=== PATIENT | female | born 1930 | race Caucasian/White ===

== ENCOUNTER 2016-03-17 13:26 | Inpatient (IN) | payer MEDICARE, BC ==
[~2016-03-17] VITALS: Ht 147.3 cm; Wt 52.6 kg
[~2016-03-17 13:26] MED LIST: ATOR20TA PO; LAMO150T2 PO; QUET100T PO
[2016-03-17] MEDS ORDERED: ACETAMINOPHEN ES 500 MG TABLET PO ONE (14:00)
[2016-03-17] MEDS ORDERED: IV NS 0.9% 500 ML BAG IV ONE (14:00)
[2016-03-17] MEDS ORDERED: IV NS 0.9% 1,000 ML BAG IV ONE (14:00)
[2016-03-17] MEDS ORDERED: IV NS 0.9% 1,000 ML ONE (14:02)
[2016-03-17] MEDS ORDERED: IV NS 0.9% 500 ML IV ONE (14:02)
[2016-03-17] MEDS ORDERED: IV SET PRIMARY 1 EA INFUS.SET MC ONE ×2 (14:02→15:04)
[2016-03-17] MEDS ORDERED: ACETAMINOPHEN ES 500 MG TABLET ONE (14:02)
[2016-03-17] MEDS ORDERED: METO25TA6 PO (14:14)
[2016-03-17] MEDS ORDERED: VALS80TA2 PO (14:14)
[2016-03-17] MEDS ORDERED: CHOL100044 PO (14:14)
[2016-03-17] MEDS ORDERED: RISP0.253 PO (14:14)
[2016-03-17] MEDS ORDERED: ATOR10TA PO (14:14)
[2016-03-17 14:28] LABS: BASOPHILS # (AUTO) 0.2 /CMM (0.0-0.2); BASOPHILS % (AUTO) 0.6 % (0.0-2.0); DIFF TOTAL % 100 %; EOSINOPHILS # (AUTO) 0.1 /CMM (0.0-0.7); EOSINOPHILS % (AUTO) 0.3 % (0.0-6.0); HEMATOCRIT 33 % (33-45); LYMPHOCYTES # (AUTO) 0.6 /CMM (0.8-4.8); LYMPHOCYTES % (AUTO) 1.9 % (20.0-44.0); MEAN CORPUSCULAR HEMOGLOBIN 29 PG (26.0-33.0); MEAN CORPUSCULAR HGB CONC 33 g/dl (31.0-36.0); MEAN CORPUSCULAR VOLUME 88 fL (82-100); MONOCYTES # (AUTO) 1.8 /CMM (0.1-1.30); MONOCYTES % (AUTO) 5.7 % (2.0-12.0); NEUTROPHILS # (AUTO) 29.6 /CMM (1.8-8.9); NEUTROPHILS % (AUTO) 91.5 % (43.0-81.0); PLATELET COUNT (AUTO) 481 /CMM (150-450); RED BLOOD CELL COUNT(AUTO) 3.79 MIL/uL (4.0-5.2)
[2016-03-17 14:32] LABS: ANION GAP 17 (5-14); CALCIUM, SERUM 9.2 mg/dL (8.5-10.1); CARBON DIOXIDE 26 mmol/L (21-32); CHLORIDE 95 mmol/L (98-107); CREATININE 1.9 mg/dL (0.6-1.3); GLUCOSE 187 mg/dL (74-106); SODIUM SERUM 133 mmol/L (136-145); UREA NITROGEN, BLOOD 52 mg/dL (7-18)
[2016-03-17 14:34] LABS: INR 1.15 (0.87-1.13); PROTHROMBIN TIME 12.1 SECS (9.5-12.7)
[2016-03-17 14:41] LABS: TROPONIN I < 0.017 ng/mL (0.00-0.056)
[2016-03-17 14:42] LABS: WHITE BLOOD COUNT (AUTO) 32.3 K/uL (4.3-11.0)
[2016-03-17 14:45] LABS: ALANINE AMINOTRANSFERASE 41 U/L (12-78); ALBUMIN 2.6 g/dL (3.4-5.0); ASPARTATE AMINOTRANSFERASE 36 U/L (15-37); BILIRUBIN,DIRECT 0.2 mg/dL (0.0-0.2); BILIRUBIN,TOTAL 0.6 mg/dL (0.2-1.0); INDIRECT BILIRUBIN 0.4 mg/dL (0.0-1.1); TOTAL PROTEIN, SERUM 7.6 g/dL (6.4-8.2)
[2016-03-17] MEDS ORDERED: IV LR 1000 ML 1,000 ML ONE (15:04)
[2016-03-17 15:14] LABS: LACTIC ACID 2.6 mmol/L (0.4-2.0)
[2016-03-17 15:15] LABS: *LACTIC ACID REFLEX FLAG YES
[2016-03-17 15:20] LABS: KETONES,URINE Trace (NEGATIVE); LEUKOCYTE ESTERASE ,URINE Negative (NEGATIVE)
[2016-03-17 15:30] LABS: ADD UA MICROSCOPIC YES
[2016-03-17] MEDS ORDERED: PIPERACILLIN /TAZOBACTAM 3.375 G in IV D5W 50 ML IV ONE (15:30)
[2016-03-17] MEDS ORDERED: IV LR 1000 ML 1,000 ML IV ONE (15:30)
[2016-03-17 15:39] LABS: ADD URINE CULTURE NO; RBC,URINE 0-2 /HPF (0-2); WBC,URINE 0-2 /HPF (0-3)
[2016-03-17] MEDS ORDERED: IV SET PRIMARY PUMP SET 1 EA INFUS.SET MC ONE ×2 (15:46→21:54)
[2016-03-17] MEDS ORDERED: MAG HYDROX/AL HYDROX/SIMETH 30 ML UDC PO PRN (16:30)
[2016-03-17] MEDS ORDERED: ZOLPIDEM TARTRATE 5 MG TABLET PO PRN (16:30)
[2016-03-17] MEDS ORDERED: Z GUARD REMEDY 2 OZ OINT TP PRN (16:30)
[2016-03-17] MEDS ORDERED: MAGNESIUM HYDROXIDE 30 ML UDC PO PRN (16:30)
[2016-03-17] MEDS ORDERED: ONDANSETRON HCL/PF 4 MG/2 ML VIAL IVP PRN (16:30)
[2016-03-17] MEDS ORDERED: ENOXAPARIN SODIUM 30 MG/0.3 ML DISP.SYRIN SQ SCH (16:30)
[2016-03-17 16:38] LABS: LYMPHOCYTES % (MANUAL) 1 % (16-48)
[2016-03-17 16:39] LABS: PLATELET ESTIMATE INCREASED; RBC MORPHOLOGY COMMENT NORMAL RBC MORPH
[2016-03-17 17:00] VITALS: BP 151/68
[2016-03-17] MEDS: HEPARIN SODIUM, PORCINE 5000 UNITS/1 ML VIAL SQ SCH (17:22)
[2016-03-17 20:00] VITALS: BP_SYST 105; BP_SYST 109; BP_DIAS 54
[2016-03-17] MEDS: QUETIAPINE FUMARATE 100 MG TABLET PO SCH (21:42)
[2016-03-17] MEDS: METOPROLOL TARTRATE 25 MG TABLET PO SCH (21:43)
[2016-03-17] MEDS: risperiDONE 0.25 MG TABLET PO SCH (21:44)
[2016-03-17] MEDS: ATORVASTATIN 10 MG TABLET PO SCH (21:44)
[2016-03-17] MEDS: LamoTRIgine 100 MG TABLET PO SCH (21:44)
[2016-03-17] MEDS: PIPERACILLIN /TAZOBACTAM 2.25 G in IV D5W 50 ML IV SCH (21:49)
[2016-03-17] MEDS ORDERED: SECONDARY IV SET 1 EA INFUS.SET MC ONE (21:57)
[2016-03-17] MEDS: IV NS 0.9% 1,000 ML IV PRN (22:02)
[2016-03-18] VITALS: BP 136/70
[2016-03-18] MEDS: ALBUTEROL FS 2.5 MG/0.5 ML VIAL.NEB NEB SCH ×6 (00:08→19:30)
[2016-03-18 04:00] VITALS: BP 111/53
[2016-03-18] MEDS: PIPERACILLIN /TAZOBACTAM 2.25 G in IV D5W 50 ML IV SCH ×3 (04:24→20:26)
[2016-03-18 05:51] LABS: DIFF TOTAL % 100 %; HEMATOCRIT 27 % (33-45); HEMOGLOBIN 8.9 g/dL (11.5-14.8); LYMPHOCYTES # (AUTO) 0.5 /CMM (0.8-4.8); LYMPHOCYTES % (AUTO) 1.8 % (20.0-44.0); MEAN CORPUSCULAR HEMOGLOBIN 29 PG (26.0-33.0); MEAN CORPUSCULAR HGB CONC 33 g/dl (31.0-36.0); MEAN CORPUSCULAR VOLUME 90 fL (82-100); MONOCYTES # (AUTO) 1.8 /CMM (0.1-1.30); MONOCYTES % (AUTO) 5.8 % (2.0-12.0); NEUTROPHILS # (AUTO) 28.3 /CMM (1.8-8.9); NEUTROPHILS % (AUTO) 92.4 % (43.0-81.0); PLATELET COUNT (AUTO) 405 /CMM (150-450); RED BLOOD CELL COUNT(AUTO) 3.04 MIL/uL (4.0-5.2)
[2016-03-18 06:05] LABS: CALCIUM, SERUM 7.9 mg/dL (8.5-10.1); CREATININE 1.7 mg/dL (0.6-1.3); PHOSPHORUS 3.5 mg/dL (2.5-4.9); POTASSIUM 4.3 mmol/L (3.5-5.1)
[2016-03-18 06:18] LABS: WHITE BLOOD COUNT (AUTO) 30.6 K/uL (4.3-11.0)
[2016-03-18 08:00] VITALS: BP 103/47
[2016-03-18] MEDS: METOPROLOL TARTRATE 25 MG TABLET PO SCH ×2 (09:20→20:25)
[2016-03-18] MEDS: CHOLECALCIFEROL 1,000 UNIT TABLET (VIT D3) PO SCH (09:20)
[2016-03-18] MEDS: PANTOPRAZOLE 40 MG TABLET.DR PO SCH (09:20)
[2016-03-18] MEDS: HEPARIN SODIUM, PORCINE 5000 UNITS/1 ML VIAL SQ SCH ×2 (09:21→20:26)
[2016-03-18 10:23] LABS: ANISOCYTOSIS 1+; LYMPHOCYTES % (MANUAL) 2 % (16-48); PLATELET ESTIMATE INCREASED
[2016-03-18 12:00] VITALS: BP 115/62
[2016-03-18] MEDS: IV NS 0.9% 1,000 ML IV PRN (12:57)
[2016-03-18] MEDS: NEOMY SULF/BACITRAC ZN/POLY 15 GM TUBE TP SCH (12:58)
[2016-03-18] MEDS: GUAIFENESIN/D-METHORPHAN HB 5 ML UDC PO PRN ×2 (15:53→21:28)
[2016-03-18 16:00] VITALS: BP_SYST 112; BP_SYST 167; BP_DIAS 72; BP_DIAS 89
[2016-03-18] MEDS: DILTIAZEM HCL 50 MG IV IV PRN (16:00)
[2016-03-18] MEDS: BOOST PLUS FOOD-VANILLA 237 ML BOX PO SCH (16:04)
[2016-03-18 20:00] VITALS: BP 133/59
[2016-03-18] MEDS: risperiDONE 0.25 MG TABLET PO SCH (21:20)
[2016-03-18] MEDS: LamoTRIgine 100 MG TABLET PO SCH (21:20)
[2016-03-18] MEDS: QUETIAPINE FUMARATE 100 MG TABLET PO SCH (21:20)
[2016-03-18] MEDS: ATORVASTATIN 10 MG TABLET PO SCH (21:20)
[2016-03-19] VITALS: BP 120/57
[2016-03-19] MEDS ORDERED: DILTIAZEM HCL 25 MG IV ONE (00:30)
[2016-03-19] MEDS: DILTIAZEM HCL 50 MG IV IV PRN ×2 (01:30→18:51)
[2016-03-19] MEDS: ALBUTEROL FS 2.5 MG/0.5 ML VIAL.NEB NEB SCH (02:09)
[2016-03-19 04:00] VITALS: BP 134/59
[2016-03-19] MEDS: PIPERACILLIN /TAZOBACTAM 2.25 G in IV D5W 50 ML IV SCH ×3 (04:01→21:11)
[2016-03-19] MEDS: IV NS 0.9% 1,000 ML IV PRN ×2 (04:01→18:23)
[2016-03-19] MEDS: GUAIFENESIN/D-METHORPHAN HB 5 ML UDC PO PRN ×2 (04:03→11:06)
[2016-03-19] MEDS ORDERED: LEVALBUTEROL HCL NEB 1.25 MG/0.5 ML VIAL.NEB NEB SCH ×2 (07:35→11:21)
[2016-03-19 08:00] VITALS: BP 150/71
[2016-03-19] MEDS: PANTOPRAZOLE 40 MG TABLET.DR PO SCH (08:20)
[2016-03-19] MEDS: CHOLECALCIFEROL 1,000 UNIT TABLET (VIT D3) PO SCH (08:20)
[2016-03-19] MEDS: HEPARIN SODIUM, PORCINE 5000 UNITS/1 ML VIAL SQ SCH ×2 (08:23→20:49)
[2016-03-19] MEDS: METOPROLOL TARTRATE 25 MG TABLET PO SCH ×2 (08:23→20:44)
[2016-03-19] MEDS: BOOST PLUS FOOD-VANILLA 237 ML BOX PO SCH ×2 (08:26→17:33)
[2016-03-19] MEDS: NEOMY SULF/BACITRAC ZN/POLY 15 GM TUBE TP SCH (08:27)
[2016-03-19 12:00] VITALS: BP 146/66
[2016-03-19] MEDS: ALBUTEROL HALF STRENGTH 1.25 MG/3 ML VIAL.NEB NEB SCH ×2 (14:11→19:30)
[2016-03-19 14:19] LABS: BASOPHILS % (AUTO) 0.1 % (0.0-2.0); DIFF TOTAL % 100 %; EOSINOPHILS # (AUTO) 0.1 /CMM (0.0-0.7); EOSINOPHILS % (AUTO) 0.1 % (0.0-6.0); HEMATOCRIT 24 % (33-45); HEMOGLOBIN 8.1 g/dL (11.5-14.8); LYMPHOCYTES # (AUTO) 0.8 /CMM (0.8-4.8); LYMPHOCYTES % (AUTO) 2.1 % (20.0-44.0); MEAN CORPUSCULAR HEMOGLOBIN 30 PG (26.0-33.0); MEAN CORPUSCULAR HGB CONC 33 g/dl (31.0-36.0); MEAN CORPUSCULAR VOLUME 89 fL (82-100); MONOCYTES # (AUTO) 1.7 /CMM (0.1-1.30); MONOCYTES % (AUTO) 4.5 % (2.0-12.0); NEUTROPHILS # (AUTO) 34.9 /CMM (1.8-8.9); NEUTROPHILS % (AUTO) 93.2 % (43.0-81.0); PLATELET COUNT (AUTO) 432 /CMM (150-450); RED BLOOD CELL COUNT(AUTO) 2.74 MIL/uL (4.0-5.2)
[2016-03-19 14:34] LABS: WHITE BLOOD COUNT (AUTO) 37.4 K/uL (4.3-11.0)
[2016-03-19 14:43] LABS: ALBUMIN 1.6 g/dL (3.4-5.0); BILIRUBIN,TOTAL 0.4 mg/dL (0.2-1.0); CALCIUM, SERUM 7.7 mg/dL (8.5-10.1); CREATININE 1.3 mg/dL (0.6-1.3); PHOSPHORUS 2.6 mg/dL (2.5-4.9); POTASSIUM 3.8 mmol/L (3.5-5.1); TOTAL PROTEIN, SERUM 5.7 g/dL (6.4-8.2)
[2016-03-19 15:54] LABS: ANISOCYTOSIS 1+; BAND % (MANUAL) 3 % (0.0-5.0); EOSINOPHILS % (MANUAL) 1 % (0-4); LYMPHOCYTES % (MANUAL) 5 % (16-48); PLATELET ESTIMATE INCREASED
[2016-03-19 15:55] LABS: POIKILOCYTOSIS RARE
[2016-03-19 16:00] VITALS: BP 124/58
[2016-03-19] MEDS: ACETAMINOPHEN 325 MG TABLET PO PRN (18:23)
[2016-03-19 20:00] VITALS: BP 120/58
[2016-03-19] MEDS: ATORVASTATIN 10 MG TABLET PO SCH (20:43)
[2016-03-19] MEDS: risperiDONE 0.25 MG TABLET PO SCH (20:43)
[2016-03-19] MEDS: QUETIAPINE FUMARATE 100 MG TABLET PO SCH (20:45)
[2016-03-19] MEDS: LamoTRIgine 100 MG TABLET PO SCH (20:45)
[2016-03-20] VITALS: BP 92/55
[2016-03-20] MEDS: ALBUTEROL HALF STRENGTH 1.25 MG/3 ML VIAL.NEB NEB SCH ×4 (01:30→19:38)
[2016-03-20 04:00] VITALS: BP 126/64
[2016-03-20] MEDS: ACETAMINOPHEN 325 MG TABLET PO PRN ×2 (04:30→17:23)
[2016-03-20] MEDS: GUAIFENESIN/D-METHORPHAN HB 5 ML UDC PO PRN ×3 (04:30→20:19)
[2016-03-20] MEDS: PIPERACILLIN /TAZOBACTAM 2.25 G in IV D5W 50 ML IV SCH ×3 (04:30→20:18)
[2016-03-20] MEDS: PANTOPRAZOLE 40 MG TABLET.DR PO SCH (04:31)
[2016-03-20 06:47] LABS: DIFF TOTAL % 100 %; EOSINOPHILS # (AUTO) 0.1 /CMM (0.0-0.7); EOSINOPHILS % (AUTO) 0.3 % (0.0-6.0); HEMATOCRIT 23 % (33-45); HEMOGLOBIN 7.4 g/dL (11.5-14.8); LYMPHOCYTES # (AUTO) 0.9 /CMM (0.8-4.8); LYMPHOCYTES % (AUTO) 3.1 % (20.0-44.0); MEAN CORPUSCULAR HEMOGLOBIN 30 PG (26.0-33.0); MEAN CORPUSCULAR HGB CONC 33 g/dl (31.0-36.0); MEAN CORPUSCULAR VOLUME 90 fL (82-100); MONOCYTES # (AUTO) 1.7 /CMM (0.1-1.30); MONOCYTES % (AUTO) 5.8 % (2.0-12.0); NEUTROPHILS # (AUTO) 25.9 /CMM (1.8-8.9); NEUTROPHILS % (AUTO) 90.8 % (43.0-81.0); PLATELET COUNT (AUTO) 394 /CMM (150-450); RED BLOOD CELL COUNT(AUTO) 2.52 MIL/uL (4.0-5.2); WHITE BLOOD COUNT (AUTO) 28.5 K/uL (4.3-11.0)
[2016-03-20 07:12] LABS: CALCIUM, SERUM 7.5 mg/dL (8.5-10.1); CREATININE 1.3 mg/dL (0.6-1.3); PHOSPHORUS 2.5 mg/dL (2.5-4.9); POTASSIUM 3.4 mmol/L (3.5-5.1)
[2016-03-20 08:00] VITALS: BP 92/53
[2016-03-20 08:14] LABS: BAND % (MANUAL) 6 % (0.0-5.0); EOSINOPHILS % (MANUAL) 1 % (0-4); LYMPHOCYTES % (MANUAL) 3 % (16-48); METAMYELOCYTES % 1 % (0-0); MYELOCYTES % 1 % (0-0); PLATELET ESTIMATE INCREASED
[2016-03-20 08:15] LABS: ANISOCYTOSIS 1+
[2016-03-20] MEDS: BOOST PLUS FOOD-VANILLA 237 ML BOX PO SCH ×2 (08:27→17:23)
[2016-03-20] MEDS: CHOLECALCIFEROL 1,000 UNIT TABLET (VIT D3) PO SCH (08:27)
[2016-03-20] MEDS: HEPARIN SODIUM, PORCINE 5000 UNITS/1 ML VIAL SQ SCH ×2 (08:29→20:21)
[2016-03-20] MEDS: NEOMY SULF/BACITRAC ZN/POLY 15 GM TUBE TP SCH (08:29)
[2016-03-20] MEDS: METOPROLOL TARTRATE 25 MG TABLET PO SCH ×3 (08:30→20:20)
[2016-03-20] MEDS: IV NS 0.9% 1,000 ML IV PRN ×3 (08:47→18:07)
[2016-03-20] MEDS: POTASSIUM CHLORIDE 20 MEQ TAB.PRT.SR PO SCH ×2 (11:59→13:25)
[2016-03-20 12:00] VITALS: BP 106/71
[2016-03-20 12:41] LABS: IRON, SERUM 18 ug/dl (50-175); PERCENT SATURATION 21 % (14-33); TOTAL IRON BINDING CAPACITY 86 ug/dl (250-450)
[2016-03-20 16:00] VITALS: BP 112/54
[2016-03-20 20:00] VITALS: BP 138/66
[2016-03-20] MEDS: QUETIAPINE FUMARATE 100 MG TABLET PO SCH (21:00)
[2016-03-20] MEDS: LamoTRIgine 100 MG TABLET PO SCH (21:00)
[2016-03-20] MEDS: risperiDONE 0.25 MG TABLET PO SCH (21:00)
[2016-03-21] VITALS (7 sets, daily range): BP systolic 94–160; BP diastolic 46–98
[2016-03-21] MEDS: ALBUTEROL HALF STRENGTH 1.25 MG/3 ML VIAL.NEB NEB SCH ×5 (01:08→19:57)
[2016-03-21] MEDS: PIPERACILLIN /TAZOBACTAM 2.25 G in IV D5W 50 ML IV SCH (05:36)
[2016-03-21] MEDS: GUAIFENESIN/D-METHORPHAN HB 5 ML UDC PO PRN ×3 (05:36→21:11)
[2016-03-21 07:13] LABS: CALCIUM, SERUM 8.4 mg/dL (8.5-10.1); CREATININE 1.1 mg/dL (0.6-1.3)
[2016-03-21] MEDS: BOOST PLUS FOOD-VANILLA 237 ML BOX PO SCH ×3 (08:33→17:34)
[2016-03-21] MEDS: CHOLECALCIFEROL 1,000 UNIT TABLET (VIT D3) PO SCH (08:33)
[2016-03-21] MEDS: METOPROLOL TARTRATE 25 MG TABLET PO SCH ×2 (08:34→21:12)
[2016-03-21] MEDS: PANTOPRAZOLE 40 MG TABLET.DR PO SCH (08:35)
[2016-03-21] MEDS: HEPARIN SODIUM, PORCINE 5000 UNITS/1 ML VIAL SQ SCH ×2 (08:40→21:10)
[2016-03-21] MEDS: NEOMY SULF/BACITRAC ZN/POLY 15 GM TUBE TP SCH (08:42)
[2016-03-21] MEDS: PIPERACILLIN /TAZOBACTAM 3.375 G in IV D5W 50 ML IV SCH ×3 (12:37→23:38)
[2016-03-21] MEDS ORDERED: BOOST PLUS FOOD-VANILLA 237 ML BOX PO SCH (17:00)
[2016-03-21] MEDS: LamoTRIgine 100 MG TABLET PO SCH (21:12)
[2016-03-21] MEDS: risperiDONE 0.25 MG TABLET PO SCH (21:13)
[2016-03-21] MEDS: QUETIAPINE FUMARATE 100 MG TABLET PO SCH (21:13)
[2016-03-21] MEDS ORDERED: SECONDARY IV SET 1 EA INFUS.SET MC ONE (23:38)
[2016-03-21] MEDS ORDERED: IV SET PRIMARY PUMP SET 1 EA INFUS.SET MC ONE (23:38)
[2016-03-22] MEDS: ALBUTEROL HALF STRENGTH 1.25 MG/3 ML VIAL.NEB NEB SCH ×4 (01:13→19:28)
[2016-03-22] MEDS: GUAIFENESIN/D-METHORPHAN HB 5 ML UDC PO PRN (02:55)
[2016-03-22] MEDS: HYDROCODONE/APAP 5/325MG 1 EACH TABLET PO PRN (03:02)
[2016-03-22 04:00] VITALS: BP 127/63
[2016-03-22] MEDS: PIPERACILLIN /TAZOBACTAM 3.375 G in IV D5W 50 ML IV SCH ×4 (05:19→23:27)
[2016-03-22 07:20] LABS: CALCIUM, SERUM 8.8 mg/dL (8.5-10.1); CREATININE 1.1 mg/dL (0.6-1.3); POTASSIUM 4.2 mmol/L (3.5-5.1)
[2016-03-22 08:00] VITALS: BP 151/75
[2016-03-22] MEDS: CHOLECALCIFEROL 1,000 UNIT TABLET (VIT D3) PO SCH (08:26)
[2016-03-22] MEDS: NEOMY SULF/BACITRAC ZN/POLY 15 GM TUBE TP SCH (08:26)
[2016-03-22] MEDS: METOPROLOL TARTRATE 25 MG TABLET PO SCH ×2 (08:26→20:46)
[2016-03-22] MEDS: PANTOPRAZOLE 40 MG TABLET.DR PO SCH (08:26)
[2016-03-22] MEDS: BOOST PLUS FOOD-VANILLA 237 ML BOX PO SCH ×3 (08:35→17:15)
[2016-03-22] MEDS: HEPARIN SODIUM, PORCINE 5000 UNITS/1 ML VIAL SQ SCH ×2 (08:36→20:48)
[2016-03-22 11:47] LABS: BASOPHILS % (AUTO) 0.1 % (0.0-2.0); DIFF TOTAL % 100 %; EOSINOPHILS # (AUTO) 0.2 /CMM (0.0-0.7); EOSINOPHILS % (AUTO) 0.9 % (0.0-6.0); HEMATOCRIT 25 % (33-45); HEMOGLOBIN 8.2 g/dL (11.5-14.8); LYMPHOCYTES # (AUTO) 1.5 /CMM (0.8-4.8); LYMPHOCYTES % (AUTO) 6.9 % (20.0-44.0); MEAN CORPUSCULAR HEMOGLOBIN 29 PG (26.0-33.0); MEAN CORPUSCULAR HGB CONC 33 g/dl (31.0-36.0); MEAN CORPUSCULAR VOLUME 90 fL (82-100); MONOCYTES # (AUTO) 1.9 /CMM (0.1-1.30); MONOCYTES % (AUTO) 8.6 % (2.0-12.0); NEUTROPHILS # (AUTO) 18.3 /CMM (1.8-8.9); NEUTROPHILS % (AUTO) 83.5 % (43.0-81.0); PLATELET COUNT (AUTO) 462 /CMM (150-450); WHITE BLOOD COUNT (AUTO) 21.9 K/uL (4.3-11.0)
[2016-03-22 12:57] LABS: BAND % (MANUAL) 4 % (0.0-5.0); EOSINOPHILS % (MANUAL) 1 % (0-4); LYMPHOCYTES % (MANUAL) 3 % (16-48); PLATELET ESTIMATE INCREASED
[2016-03-22 16:00] VITALS: BP 157/73
[2016-03-22 20:00] VITALS: BP_SYST 150; BP_SYST 169; BP_DIAS 74; BP_DIAS 77
[2016-03-22] MEDS: LamoTRIgine 100 MG TABLET PO SCH (21:00)
[2016-03-22] MEDS: risperiDONE 0.25 MG TABLET PO SCH (21:00)
[2016-03-22] MEDS: QUETIAPINE FUMARATE 100 MG TABLET PO SCH (21:01)
[2016-03-23] MEDS: ALBUTEROL HALF STRENGTH 1.25 MG/3 ML VIAL.NEB NEB SCH ×4 (01:24→19:32)
[2016-03-23 04:00] VITALS: BP 148/75
[2016-03-23] MEDS: PIPERACILLIN /TAZOBACTAM 3.375 G in IV D5W 50 ML IV SCH ×4 (06:19→23:31)
[2016-03-23 07:09] LABS: BASOPHILS % (AUTO) 0.2 % (0.0-2.0); DIFF TOTAL % 100 %; EOSINOPHILS # (AUTO) 0.2 /CMM (0.0-0.7); EOSINOPHILS % (AUTO) 1.3 % (0.0-6.0); HEMATOCRIT 24 % (33-45); HEMOGLOBIN 8.1 g/dL (11.5-14.8); LYMPHOCYTES # (AUTO) 1.7 /CMM (0.8-4.8); LYMPHOCYTES % (AUTO) 9.3 % (20.0-44.0); MEAN CORPUSCULAR HEMOGLOBIN 30 PG (26.0-33.0); MEAN CORPUSCULAR HGB CONC 34 g/dl (31.0-36.0); MEAN CORPUSCULAR VOLUME 89 fL (82-100); MONOCYTES % (AUTO) 11.2 % (2.0-12.0); NEUTROPHILS # (AUTO) 14.1 /CMM (1.8-8.9); PLATELET COUNT (AUTO) 490 /CMM (150-450); RED BLOOD CELL COUNT(AUTO) 2.72 MIL/uL (4.0-5.2); WHITE BLOOD COUNT (AUTO) 18.1 K/uL (4.3-11.0)
[2016-03-23 07:28] LABS: CALCIUM, SERUM 8.8 mg/dL (8.5-10.1); POTASSIUM 3.9 mmol/L (3.5-5.1)
[2016-03-23] MEDS: PANTOPRAZOLE 40 MG TABLET.DR PO SCH (07:38)
[2016-03-23 08:00] VITALS: BP 156/78
[2016-03-23] MEDS: CHOLECALCIFEROL 1,000 UNIT TABLET (VIT D3) PO SCH (09:43)
[2016-03-23] MEDS: BOOST PLUS FOOD-VANILLA 237 ML BOX PO SCH ×3 (09:44→16:49)
[2016-03-23] MEDS: NEOMY SULF/BACITRAC ZN/POLY 15 GM TUBE TP SCH (09:46)
[2016-03-23] MEDS: HEPARIN SODIUM, PORCINE 5000 UNITS/1 ML VIAL SQ SCH ×2 (09:46→20:58)
[2016-03-23 16:00] VITALS: BP 147/70
[2016-03-23 16:47] LABS: EOSINOPHILS % (MANUAL) 1 % (0-4); LYMPHOCYTES % (MANUAL) 19 % (16-48)
[2016-03-23 20:00] VITALS: BP 155/73
[2016-03-23] MEDS: METOPROLOL TARTRATE 25 MG TABLET PO SCH (20:57)
[2016-03-23] MEDS: LamoTRIgine 100 MG TABLET PO SCH (21:05)
[2016-03-23] MEDS: risperiDONE 0.25 MG TABLET PO SCH (21:06)
[2016-03-23] MEDS: QUETIAPINE FUMARATE 100 MG TABLET PO SCH (21:06)
[2016-03-24] MEDS: ALBUTEROL HALF STRENGTH 1.25 MG/3 ML VIAL.NEB NEB SCH ×4 (01:39→19:51)
[2016-03-24] MEDS ORDERED: IV NS 0.9% 250 ML IV ONE ×2 (01:46→23:57)
[2016-03-24] MEDS: HYDROCODONE/APAP 5/325MG 1 EACH TABLET PO PRN (01:54)
[2016-03-24] MEDS: GUAIFENESIN/D-METHORPHAN HB 5 ML UDC PO PRN (02:02)
[2016-03-24 04:00] VITALS: BP 114/69
[2016-03-24] MEDS: PIPERACILLIN /TAZOBACTAM 3.375 G in IV D5W 50 ML IV SCH ×3 (05:47→17:25)
[2016-03-24 07:23] LABS: BASOPHILS # (AUTO) 0.1 /CMM (0.0-0.2); BASOPHILS % (AUTO) 0.7 % (0.0-2.0); DIFF TOTAL % 100 %; EOSINOPHILS # (AUTO) 0.3 /CMM (0.0-0.7); EOSINOPHILS % (AUTO) 1.7 % (0.0-6.0); HEMATOCRIT 24 % (33-45); LYMPHOCYTES # (AUTO) 1.7 /CMM (0.8-4.8); LYMPHOCYTES % (AUTO) 11.2 % (20.0-44.0); MEAN CORPUSCULAR HEMOGLOBIN 30 PG (26.0-33.0); MEAN CORPUSCULAR HGB CONC 33 g/dl (31.0-36.0); MEAN CORPUSCULAR VOLUME 90 fL (82-100); MONOCYTES # (AUTO) 1.5 /CMM (0.1-1.30); MONOCYTES % (AUTO) 9.7 % (2.0-12.0); NEUTROPHILS # (AUTO) 11.7 /CMM (1.8-8.9); NEUTROPHILS % (AUTO) 76.7 % (43.0-81.0); PLATELET COUNT (AUTO) 491 /CMM (150-450); RED BLOOD CELL COUNT(AUTO) 2.68 MIL/uL (4.0-5.2); WHITE BLOOD COUNT (AUTO) 15.2 K/uL (4.3-11.0)
[2016-03-24 07:47] LABS: CALCIUM, SERUM 8.8 mg/dL (8.5-10.1); CREATININE 1.2 mg/dL (0.6-1.3); POTASSIUM 3.7 mmol/L (3.5-5.1)
[2016-03-24] MEDS: PANTOPRAZOLE 40 MG TABLET.DR PO SCH (07:49)
[2016-03-24] MEDS: BOOST PLUS FOOD-VANILLA 237 ML BOX PO SCH ×3 (07:50→16:54)
[2016-03-24 08:00] VITALS: BP 146/75
[2016-03-24] MEDS: NEOMY SULF/BACITRAC ZN/POLY 15 GM TUBE TP SCH (08:01)
[2016-03-24] MEDS: CHOLECALCIFEROL 1,000 UNIT TABLET (VIT D3) PO SCH (08:01)
[2016-03-24] MEDS: METOPROLOL TARTRATE 25 MG TABLET PO SCH ×2 (08:01→21:57)
[2016-03-24 09:39] LABS: ANISOCYTOSIS 1+; BAND % (MANUAL) 3 % (0.0-5.0); EOSINOPHILS % (MANUAL) 1 % (0-4); HYPOCHROMASIA 1+; LYMPHOCYTES % (MANUAL) 14 % (16-48); METAMYELOCYTES % 1 % (0-0); MYELOCYTES % 2 % (0-0); PLATELET ESTIMATE INCREASED
[2016-03-24 09:40] LABS: POLYCHROMASIA 1+
[2016-03-24] MEDS: HEPARIN SODIUM, PORCINE 5000 UNITS/1 ML VIAL SQ SCH (09:46)
[2016-03-24 16:00] VITALS: BP_SYST 134; BP_SYST 152; BP_DIAS 77; BP_DIAS 93
[2016-03-24 20:00] VITALS: BP 146/79
[2016-03-24] MEDS: LamoTRIgine 100 MG TABLET PO SCH (21:57)
[2016-03-24] MEDS: risperiDONE 0.25 MG TABLET PO SCH (21:57)
[2016-03-24] MEDS: QUETIAPINE FUMARATE 100 MG TABLET PO SCH (21:58)
[2016-03-24] MEDS ORDERED: IV SET PRIMARY PUMP SET 1 EA INFUS.SET MC ONE (23:58)
[2016-03-25] MEDS: PIPERACILLIN /TAZOBACTAM 3.375 G in IV D5W 50 ML IV SCH ×4 (00:19→17:42)
[2016-03-25] MEDS: ALBUTEROL HALF STRENGTH 1.25 MG/3 ML VIAL.NEB NEB SCH ×4 (01:23→20:01)
[2016-03-25 04:00] VITALS: BP 151/72
[2016-03-25] MEDS: PANTOPRAZOLE 40 MG TABLET.DR PO SCH (07:30)
[2016-03-25 08:00] VITALS: BP 147/72
[2016-03-25] MEDS: BOOST PLUS FOOD-VANILLA 237 ML BOX PO SCH ×4 (08:00→17:42)
[2016-03-25] MEDS: METOPROLOL TARTRATE 25 MG TABLET PO SCH ×2 (08:54→21:08)
[2016-03-25] MEDS: CHOLECALCIFEROL 1,000 UNIT TABLET (VIT D3) PO SCH (08:54)
[2016-03-25] MEDS: NEOMY SULF/BACITRAC ZN/POLY 15 GM TUBE TP SCH (08:54)
[2016-03-25] MEDS ORDERED: SECONDARY IV SET 1 EA INFUS.SET MC ONE (12:12)
[2016-03-25] MEDS: HALOPERIDOL LACTATE INJ 5 MG/ML VIAL IM PRN (15:59)
[2016-03-25 16:00] VITALS: BP 138/64
[2016-03-25 17:25] LABS: CALCIUM, SERUM 8.7 mg/dL (8.5-10.1); CREATININE 1.4 mg/dL (0.6-1.3); POTASSIUM 3.7 mmol/L (3.5-5.1)
[2016-03-25 18:25] LABS: BASOPHILS % (AUTO) 0.2 % (0.0-2.0); DIFF TOTAL % 100 %; EOSINOPHILS # (AUTO) 0.3 /CMM (0.0-0.7); EOSINOPHILS % (AUTO) 1.6 % (0.0-6.0); HEMATOCRIT 25 % (33-45); HEMOGLOBIN 8.1 g/dL (11.5-14.8); LYMPHOCYTES # (AUTO) 1.1 /CMM (0.8-4.8); LYMPHOCYTES % (AUTO) 6.8 % (20.0-44.0); MEAN CORPUSCULAR HEMOGLOBIN 30 PG (26.0-33.0); MEAN CORPUSCULAR HGB CONC 33 g/dl (31.0-36.0); MEAN CORPUSCULAR VOLUME 89 fL (82-100); MONOCYTES # (AUTO) 1.7 /CMM (0.1-1.30); MONOCYTES % (AUTO) 10.4 % (2.0-12.0); NEUTROPHILS # (AUTO) 13.1 /CMM (1.8-8.9); PLATELET COUNT (AUTO) 600 /CMM (150-450); RED BLOOD CELL COUNT(AUTO) 2.75 MIL/uL (4.0-5.2); WHITE BLOOD COUNT (AUTO) 16.2 K/uL (4.3-11.0)
[2016-03-25 18:41] VITALS: BP 138/64
[2016-03-25 19:00] LABS: BAND % (MANUAL) 3 % (0.0-5.0); LYMPHOCYTES % (MANUAL) 10 % (16-48)
[2016-03-25 19:01] LABS: BASOPHILS % (MANUAL) 0 % (0.0-2.0); EOSINOPHILS % (MANUAL) 0 % (0-4); MYELOCYTES % 1 % (0-0); PLATELET ESTIMATE INCREASED; RBC MORPHOLOGY COMMENT NORMAL RBC MORPH
[2016-03-25 20:00] VITALS: BP 155/59
[2016-03-25] MEDS: QUETIAPINE FUMARATE 100 MG TABLET PO SCH (21:07)
[2016-03-25] MEDS: risperiDONE 0.25 MG TABLET PO SCH (21:07)
[2016-03-25] MEDS: LamoTRIgine 100 MG TABLET PO SCH (21:07)
[2016-03-26] MEDS: PIPERACILLIN /TAZOBACTAM 3.375 G in IV D5W 50 ML IV SCH ×4 (00:06→17:04)
[2016-03-26] MEDS: ALBUTEROL HALF STRENGTH 1.25 MG/3 ML VIAL.NEB NEB SCH ×4 (01:48→19:41)
[2016-03-26 04:00] VITALS: BP 152/66
[2016-03-26 05:51] LABS: BASOPHILS # (AUTO) 0.1 /CMM (0.0-0.2); BASOPHILS % (AUTO) 0.4 % (0.0-2.0); DIFF TOTAL % 100 %; EOSINOPHILS # (AUTO) 0.3 /CMM (0.0-0.7); EOSINOPHILS % (AUTO) 1.9 % (0.0-6.0); HEMATOCRIT 24 % (33-45); HEMOGLOBIN 7.8 g/dL (11.5-14.8); LYMPHOCYTES # (AUTO) 1.6 /CMM (0.8-4.8); LYMPHOCYTES % (AUTO) 9.4 % (20.0-44.0); MEAN CORPUSCULAR HEMOGLOBIN 30 PG (26.0-33.0); MEAN CORPUSCULAR HGB CONC 33 g/dl (31.0-36.0); MEAN CORPUSCULAR VOLUME 89 fL (82-100); MONOCYTES # (AUTO) 1.7 /CMM (0.1-1.30); MONOCYTES % (AUTO) 10.1 % (2.0-12.0); NEUTROPHILS # (AUTO) 13.5 /CMM (1.8-8.9); NEUTROPHILS % (AUTO) 78.2 % (43.0-81.0); PLATELET COUNT (AUTO) 562 /CMM (150-450); RED BLOOD CELL COUNT(AUTO) 2.65 MIL/uL (4.0-5.2); WHITE BLOOD COUNT (AUTO) 17.3 K/uL (4.3-11.0)
[2016-03-26 05:58] LABS: CALCIUM, SERUM 8.7 mg/dL (8.5-10.1); CREATININE 1.4 mg/dL (0.6-1.3); POTASSIUM 3.6 mmol/L (3.5-5.1)
[2016-03-26] MEDS: PANTOPRAZOLE 40 MG TABLET.DR PO SCH (07:21)
[2016-03-26 08:00] VITALS: BP 161/80
[2016-03-26] MEDS: CHOLECALCIFEROL 1,000 UNIT TABLET (VIT D3) PO SCH (08:07)
[2016-03-26] MEDS: METOPROLOL TARTRATE 25 MG TABLET PO SCH ×2 (08:08→21:15)
[2016-03-26] MEDS: BOOST PLUS FOOD-VANILLA 237 ML BOX PO SCH ×3 (08:09→15:59)
[2016-03-26] MEDS: NEOMY SULF/BACITRAC ZN/POLY 15 GM TUBE TP SCH (08:10)
[2016-03-26] MEDS ORDERED: IV NS 0.9% 1,000 ML IV ONE (15:30)
[2016-03-26] MEDS ORDERED: IV SET PRIMARY PUMP SET 1 EA INFUS.SET MC ONE (15:54)
[2016-03-26 16:00] VITALS: BP 141/70
[2016-03-26 20:00] VITALS: BP_SYST 136; BP_SYST 157; BP_DIAS 64; BP_DIAS 73
[2016-03-26] MEDS: QUETIAPINE FUMARATE 100 MG TABLET PO SCH (21:16)
[2016-03-26] MEDS: risperiDONE 0.25 MG TABLET PO SCH (21:16)
[2016-03-26] MEDS: LamoTRIgine 100 MG TABLET PO SCH (21:17)
[2016-03-27] MEDS: PIPERACILLIN /TAZOBACTAM 3.375 G in IV D5W 50 ML IV SCH ×3 (00:29→12:00)
[2016-03-27] MEDS: ALBUTEROL HALF STRENGTH 1.25 MG/3 ML VIAL.NEB NEB SCH ×3 (01:40→13:03)
[2016-03-27] MEDS: HALOPERIDOL LACTATE INJ 5 MG/ML VIAL IM PRN (02:48)
[2016-03-27 04:00] VITALS: BP 166/72
[2016-03-27 08:00] VITALS: BP 169/80
[2016-03-27] MEDS: BOOST PLUS FOOD-VANILLA 237 ML BOX PO SCH ×2 (09:02→12:26)
[2016-03-27] MEDS: PANTOPRAZOLE 40 MG TABLET.DR PO SCH (09:02)
[2016-03-27] MEDS: CHOLECALCIFEROL 1,000 UNIT TABLET (VIT D3) PO SCH (09:02)
[2016-03-27] MEDS: METOPROLOL TARTRATE 25 MG TABLET PO SCH (09:03)
[2016-03-27] MEDS: NEOMY SULF/BACITRAC ZN/POLY 15 GM TUBE TP SCH (09:04)
[2016-03-27] MEDS ORDERED: PIPE3.376 IV (10:07)
[2016-03-27 12:07] LABS: BASOPHILS # (AUTO) 0.1 /CMM (0.0-0.2); BASOPHILS % (AUTO) 0.6 % (0.0-2.0); DIFF TOTAL % 100 %; EOSINOPHILS # (AUTO) 0.3 /CMM (0.0-0.7); EOSINOPHILS % (AUTO) 1.5 % (0.0-6.0); HEMATOCRIT 23 % (33-45); HEMOGLOBIN 7.7 g/dL (11.5-14.8); LYMPHOCYTES # (AUTO) 1.3 /CMM (0.8-4.8); LYMPHOCYTES % (AUTO) 7.7 % (20.0-44.0); MEAN CORPUSCULAR HEMOGLOBIN 29 PG (26.0-33.0); MEAN CORPUSCULAR HGB CONC 33 g/dl (31.0-36.0); MEAN CORPUSCULAR VOLUME 88 fL (82-100); MONOCYTES # (AUTO) 1.5 /CMM (0.1-1.30); MONOCYTES % (AUTO) 8.9 % (2.0-12.0); NEUTROPHILS # (AUTO) 13.3 /CMM (1.8-8.9); NEUTROPHILS % (AUTO) 81.3 % (43.0-81.0); PLATELET COUNT (AUTO) 611 /CMM (150-450); RED BLOOD CELL COUNT(AUTO) 2.63 MIL/uL (4.0-5.2); WHITE BLOOD COUNT (AUTO) 16.4 K/uL (4.3-11.0)
[2016-03-27 12:47] LABS: CALCIUM, SERUM 8.6 mg/dL (8.5-10.1); CREATININE 1.4 mg/dL (0.6-1.3); PHOSPHORUS 3.8 mg/dL (2.5-4.9)
[2016-03-27 16:00] VITALS: BP 160/78
== END 2016-03-27 16:32 | DRG 871 ==
LOC: ER 13:28 → TELE-TD 16:06 → TELE1 03-18 10:27 → MEDSG1 03-21 07:31
PROVIDERS: ADMIT Internal Medicine; ATTEND Internal Medicine
DX: A41.9 Sepsis, unspecified organism (principal); J15.6 Pneumonia due to other Gram-negative bacteria; E43 Unspecified severe protein-calorie malnutrition; G92 Toxic encephalopathy; N17.0 Acute kidney failure with tubular necrosis; E87.1 Hypo-osmolality and hyponatremia; R65.20 Severe sepsis without septic shock; I10 Essential (primary) hypertension; F32.9 Major depressive disorder, single episode, unspecified; F29 Unspecified psychosis not due to a substance or known physiological condition; E88.09 Other disorders of plasma-protein metabolism, not elsewhere classified; M62.50 Muscle wasting and atrophy, not elsewhere classified, unspecified site; Z68.24 Body mass index [BMI] 24.0-24.9, adult
CPT/HCPCS: 36415; 71010-TC; 80048-TC; 80053-TC; 80076-TC; 81000-TC; 82728-TC; 82962-TC; 83540-TC; 83605-TC; 83735-TC; 83880; 84100-TC; 84484-TC; 85025-TC; 85730-TC; 86850-TC; 86901; 87040-TC; 87070-TC; 87081-TC; 87400; 93307-TC; 94799-TC; 97001-TC; 97003-TC; 97110-TC; 97116-TC; 97530-TC; 97535-TC; A4606; A6402; J1630; J1644; J2543; J3490; J7030; J7040; J7050; J7060; J7120; Z7610

== ENCOUNTER 2017-09-26 13:22 | Emergency (ER) | payer MEDICARE, BC ==
[~2017-09-26] VITALS: Ht 142.2 cm; Wt 48.5 kg
[~2017-09-26 13:22] MED LIST changes: +ATOR10TA PO; -ATOR20TA PO; +CHOL100044 PO; +METO25TA6 PO; +PIPE3.376 IV; +RISP0.253 PO; +VALS80TA2 PO
[2017-09-26 13:28] VITALS: BP 144/75
--- NOTE | 2017-09-26 14:00 | NUR ---
bb son from [facility]: s/p fall and hit head last night. denies loc. pt is ambulatory. nad vss rr even and unlabored. seen and evaluated by er
[2017-09-26 14:12] LABS: BASOPHILS # (AUTO) 0.1 /CMM (0.0-0.2); BASOPHILS % (AUTO) 1.1 % (0.0-2.0); HEMATOCRIT 34 % (33-45); HEMOGLOBIN 11.4 g/dL (11.5-14.8); LYMPHOCYTES # (AUTO) 1.5 /CMM (0.8-4.8); LYMPHOCYTES % (AUTO) 12.8 % (20.0-44.0); MEAN CORPUSCULAR HEMOGLOBIN 30 PG (26.0-33.0); MEAN CORPUSCULAR HGB CONC 34 g/dl (31.0-36.0); MEAN CORPUSCULAR VOLUME 88 fL (82-100); MONOCYTES # (AUTO) 1.1 /CMM (0.1-1.30); MONOCYTES % (AUTO) 9.3 % (2.0-12.0); NEUTROPHILS # (AUTO) 9.2 /CMM (1.8-8.9); NEUTROPHILS % (AUTO) 74.8 % (43.0-81.0); PLATELET COUNT (AUTO) 408 /CMM (150-450); RDW COEFFICIENT OF VARIATION 13.3 (11.5-15.0); RED BLOOD CELL COUNT(AUTO) 3.85 MIL/uL (4.0-5.2); WHITE BLOOD COUNT (AUTO) 12.1 K/uL (4.3-11.0)
[2017-09-26 14:21] LABS: CALCIUM, SERUM 9.7 mg/dL (8.5-10.1); CARBON DIOXIDE 29 mmol/L (21-32); CHLORIDE 98 mmol/L (98-107); CREATININE 1.6 mg/dL (0.6-1.3); GLUCOSE 93 mg/dL (74-106); POTASSIUM 4.8 mmol/L (3.5-5.1); SODIUM SERUM 131 mmol/L (136-145); UREA NITROGEN, BLOOD 25 mg/dL (7-18)
[2017-09-26 14:25] LABS: INR 0.93 (0.85-1.15)
[2017-09-26 14:29] LABS: TROPONIN I < 0.017 ng/mL (0.00-0.056)
--- NOTE | 2017-09-26 15:30 | NUR ---
PT IS NOT IN THE ROOM, GOWN IN THE BED. PT LEFT WITHOUT HER DISCHARGE PAPERS. DOCTOR BONNIE NOTIFIED.
== END 2017-09-26 15:32 | disposition home or self-care (01) ==
LOC: ER 13:28
DX: S00.12XA Contusion of left eyelid and periocular area, initial encounter (principal); D64.9 Anemia, unspecified; N28.9 Disorder of kidney and ureter, unspecified; I10 Essential (primary) hypertension; E78.00 Pure hypercholesterolemia, unspecified; K21.9 Gastro-esophageal reflux disease without esophagitis; F22 Delusional disorders; F32.9 Major depressive disorder, single episode, unspecified; F29 Unspecified psychosis not due to a substance or known physiological condition; G93.40 Encephalopathy, unspecified; Z79.899 Other long term (current) drug therapy; W18.09XA Striking against other object with subsequent fall, initial encounter; Y93.89 Activity, other specified; Y92.89 Other specified places as the place of occurrence of the external cause; Y99.8 Other external cause status
CPT/HCPCS: 36415; 70450-TC; 70486-TC; 80048-TC; 84484-TC; 85025-TC; 85730-TC; A4606; Z7610

== ENCOUNTER 2017-10-14 16:20 | Emergency (ER) | payer MEDICARE, BC ==
[~2017-10-14] VITALS: Ht 142.2 cm; Wt 49.0 kg
--- NOTE | 2017-10-14 16:45 | NUR ---
EPIGASTRIC PAIN X 5 DAYS. WAS AT URGENT CARE TODAY AND WAS GIVEN ZOFRAN FOR NAUSEA. AAOX3, VSS, DENIES CP, SOB, DIZZINESS, ARM/JAW PAIN & NAD NOTED @ THIS TIME. WILL CONT TO MONITOR.
[2017-10-14] MEDS ORDERED: IV NS 0.9% 1,000 ML BAG IV ONE (17:30)
[2017-10-14 17:36] LABS: BASOPHILS # (AUTO) 0.2 /CMM (0.0-0.2); BASOPHILS % (AUTO) 1.6 % (0.0-2.0); EOSINOPHILS % (AUTO) 1.7 % (0.0-6.0); HEMATOCRIT 34 % (33-45); HEMOGLOBIN 11.2 g/dL (11.5-14.8); LYMPHOCYTES # (AUTO) 1.3 /CMM (0.8-4.8); LYMPHOCYTES % (AUTO) 10.4 % (20.0-44.0); MEAN CORPUSCULAR HEMOGLOBIN 30 PG (26.0-33.0); MEAN CORPUSCULAR HGB CONC 34 g/dl (31.0-36.0); MEAN CORPUSCULAR VOLUME 88 fL (82-100); MONOCYTES # (AUTO) 1.1 /CMM (0.1-1.30); MONOCYTES % (AUTO) 8.9 % (2.0-12.0); NEUTROPHILS # (AUTO) 9.5 /CMM (1.8-8.9); NEUTROPHILS % (AUTO) 77.4 % (43.0-81.0); PLATELET COUNT (AUTO) 408 /CMM (150-450); RDW COEFFICIENT OF VARIATION 12.7 (11.5-15.0); WHITE BLOOD COUNT (AUTO) 12.3 K/uL (4.3-11.0)
[2017-10-14 17:52] LABS: ALANINE AMINOTRANSFERASE 23 U/L (12-78); ALBUMIN 3.4 g/dL (3.4-5.0); ALKALINE PHOSPHATASE 105 U/L (46-116); ASPARTATE AMINOTRANSFERASE 18 U/L (15-37); BILIRUBIN,DIRECT 0.1 mg/dL (0.0-0.2); BILIRUBIN,TOTAL 0.2 mg/dL (0.2-1.0); CALCIUM, SERUM 9.1 mg/dL (8.5-10.1); CARBON DIOXIDE 27 mmol/L (21-32); CHLORIDE 90 mmol/L (98-107); CREATININE 1.1 mg/dL (0.6-1.3); GLUCOSE 109 mg/dL (74-106); LIPASE 159 U/L (73-393); POTASSIUM 4.8 mmol/L (3.5-5.1); SODIUM SERUM 121 mmol/L (136-145); TOTAL PROTEIN, SERUM 6.8 g/dL (6.4-8.2); UREA NITROGEN, BLOOD 19 mg/dL (7-18)
[2017-10-14 17:54] LABS: TROPONIN I < 0.017 ng/mL (0.00-0.056)
[2017-10-14 19:17] LABS: APPEARANCE,URINE Clear (CLEAR); BILIRUBIN,URINE Negative (NEGATIVE); BLOOD, URINE Trace-lysed Ery/uL (NEGATIVE); COLOR,URINE Yellow (YELLOW); KETONES,URINE Negative (NEGATIVE); LEUKOCYTE ESTERASE ,URINE Negative (NEGATIVE); NITRITE, URINE Negative (NEGATIVE); PROTEIN,URINE Negative (NEGATIVE); UGLUCOSE Negative (NEGATIVE); UROBILINOGEN,URINE 0.2 EU/dL (0.2)
[2017-10-14 19:28] LABS: BACTERIA,URINE Rare /HPF (None Seen); SQUAMOUS EPITHELIAL CELL,UR Few /HPF (None Seen); WBC,URINE NONE SEEN /HPF (0-3)
[2017-10-14] MEDS ORDERED: KETOROLAC TROMETHAMINE INJ 30 MG/ML VIAL IV ONE (19:30)
[2017-10-14] MEDS ORDERED: KETOROLAC TROMETHAMINE INJ 30 MG/ML VIAL ONE (19:42)
[2017-10-14 23:10] VITALS: BP 148/70
== END 2017-10-14 22:00 | disposition home or self-care (01) ==
LOC: ER 16:22
DX: E86.0 Dehydration (principal); R10.84 Generalized abdominal pain; K56.7 Ileus, unspecified; I10 Essential (primary) hypertension; E78.00 Pure hypercholesterolemia, unspecified; K21.9 Gastro-esophageal reflux disease without esophagitis; F22 Delusional disorders; F31.9 Bipolar disorder, unspecified; Z79.899 Other long term (current) drug therapy
CPT/HCPCS: 36415; 51701; 74176; 80048; 80076; 81001; 83690; 84484; 85025; 87086; 93005; 96361; 96374; 99285; A4606; J1885; J7030; 81000-TC; Z7610

== ENCOUNTER 2017-10-16 10:21 | Inpatient (IN) | payer MEDICARE, BC ==
[~2017-10-16] VITALS: Ht 147.3 cm; Wt 50.8 kg
--- NOTE | 2017-10-16 10:44 | NUR ---
PT WAS BB SON FOR EPIGASTRIC PAIN W/ NAUSEA. NAD NO FACIAL GRIMACING. ASSISTED TO ED BED 04. ALL NEEDS ARE ATTENDED, KEPT COMFORTABLE. WILL CONT TO MONITOR
[2017-10-16 11:00] LABS: BASOPHILS % (AUTO) 0.3 % (0.0-2.0); EOSINOPHILS % (AUTO) 1.2 % (0.0-6.0); HEMATOCRIT 32 % (33-45); HEMOGLOBIN 10.7 g/dL (11.5-14.8); LYMPHOCYTES % (AUTO) 8.3 % (20.0-44.0); MEAN CORPUSCULAR HEMOGLOBIN 30 PG (26.0-33.0); MEAN CORPUSCULAR HGB CONC 33 g/dl (31.0-36.0); MEAN CORPUSCULAR VOLUME 91 fL (82-100); MONOCYTES # (AUTO) 1.1 /CMM (0.1-1.30); MONOCYTES % (AUTO) 8.9 % (2.0-12.0); NEUTROPHILS % (AUTO) 81.3 % (43.0-81.0); PLATELET COUNT (AUTO) 445 /CMM (150-450); RDW COEFFICIENT OF VARIATION 13.7 (11.5-15.0); RED BLOOD CELL COUNT(AUTO) 3.55 MIL/uL (4.0-5.2); WHITE BLOOD COUNT (AUTO) 12.3 K/uL (4.3-11.0)
[2017-10-16] MEDS ORDERED: IV NS 0.9% 500 ML BAG IV ONE (11:00)
[2017-10-16] MEDS ORDERED: ONDANSETRON HCL/PF 4 MG/2 ML VIAL IVP ONE (11:00)
[2017-10-16] MEDS ORDERED: ONDANSETRON HCL/PF 4 MG/2 ML VIAL ONE (11:01)
[2017-10-16 11:10] LABS: CALCIUM, SERUM 8.9 mg/dL (8.5-10.1); CARBON DIOXIDE 27 mmol/L (21-32); CHLORIDE 93 mmol/L (98-107); CREATININE 1.4 mg/dL (0.6-1.3); GLUCOSE 116 mg/dL (74-106); POTASSIUM 4.8 mmol/L (3.5-5.1); SODIUM SERUM 125 mmol/L (136-145); UREA NITROGEN, BLOOD 22 mg/dL (7-18)
[2017-10-16 11:16] LABS: ALANINE AMINOTRANSFERASE 20 U/L (12-78); ALBUMIN 3.3 g/dL (3.4-5.0); ALKALINE PHOSPHATASE 104 U/L (46-116); ASPARTATE AMINOTRANSFERASE 15 U/L (15-37); BILIRUBIN,DIRECT 0.1 mg/dL (0.0-0.2); BILIRUBIN,TOTAL 0.2 mg/dL (0.2-1.0); LIPASE 158 U/L (73-393); TOTAL PROTEIN, SERUM 6.7 g/dL (6.4-8.2)
--- NOTE | 2017-10-16 11:37 | NUR ---
PT TAKEN TO XRAY
--- NOTE | 2017-10-16 11:41 | NUR ---
RUPAL (GRAND DAUGHTER) [phone]
[2017-10-16] MEDS ORDERED: PIPERACILLIN /TAZOBACTAM 3.375 G in IV D5W 50 ML IV ONE (12:00)
--- NOTE | 2017-10-16 12:14 | NUR ---
CALLED NURSE ELIAN FOR MED.SURG BED
--- NOTE | 2017-10-16 12:39 | NUR ---
REPORT GIVEN TO KAIA SHOEMAKER FOR CONT OF CARE
--- NOTE | 2017-10-16 13:08 | NUR ---
TRANSFERRED TO THE FLOOR IN STABLE CONDITION.
--- NOTE | 2017-10-16 13:20 | NUR ---
RN INITIAL NOTES: PATIENT ARRIVED FROM ER. REPORT FROM DARYL. NONLABORED BREATHING NOTED ON ROOM AIR. DENYING PAIN AT THE MOMENT. IV SITE ON LEFT WRIST GAUGE 20. BED IN LOWEST LOCKED POSITION. CALL LIGHT WITHIN REACH WILL CONTINUE TO MONITOR
[2017-10-16 13:23] VITALS: BP 139/79
--- NOTE | 2017-10-16 14:00 | NUR ---
PATIENT WISHES TO BE FULL CODE AT THE MOMENT
--- NOTE | 2017-10-16 14:00 | NUR ---
BRUISING ON RIGHT UPPER EXTREMITIES NOTED. PATIENT REFUSING FULL SKIN CHECK AND SKIN PICTURES. DENYING EXISTANCE OF WOUNDS
[2017-10-16] MEDS ORDERED: ONDANSETRON HCL/PF 4 MG/2 ML VIAL IVP PRN (15:00)
[2017-10-16] MEDS ORDERED: ACETAMINOPHEN 325 MG TABLET PO PRN (15:00)
[2017-10-16] MEDS ORDERED: MAGNESIUM HYDROXIDE 30 ML UDC PO PRN (15:00)
[2017-10-16] MEDS ORDERED: ZOLPIDEM TARTRATE 5 MG TABLET PO PRN (15:00)
[2017-10-16] MEDS ORDERED: MAG HYDROX/AL HYDROX/SIMETH 30 ML UDC PO PRN (15:00)
[2017-10-16] MEDS ORDERED: MORPHINE SULFATE INJ 2 MG/ML DISP.SYRIN IV PRN (15:00)
[2017-10-16] MEDS ORDERED: HYDROCODONE/APAP 5/325MG 1 EACH TABLET PO PRN (15:00)
[2017-10-16] MEDS ORDERED: Z GUARD REMEDY 2 OZ OINT TP PRN (15:00)
[2017-10-16] MEDS: MORPHINE SULFATE INJ 4 MG/ML DISP.SYRIN IV PRN ×3 (15:20→23:34)
[2017-10-16] MEDS: IV D5/0.45 NACL 1,000 ML IV PRN (15:22)
[2017-10-16 16:00] VITALS: BP 149/73
--- NOTE | 2017-10-16 16:32 | NUR ---
DR ROLDAN NOTIFIED THAT PATIENT HAD DIARRHEA. NO FOUL SMELL NOTED. PATIENT DENYING CRAMPING. NO FEVER AT THE MOMENT NO ORDERS FOR COLLECTION
--- NOTE | 2017-10-16 17:00 | NUR ---
DR ROBERTS CONTACTED FOR CONSULT PER DR ROLDAN
[2017-10-16] MEDS: PIPERACILLIN /TAZOBACTAM 2.25 G in IV D5W 50 ML IV SCH (17:47)
[2017-10-16 18:57] VITALS: BP 151/73
--- NOTE | 2017-10-16 19:10 | NUR ---
MS/RN NOTES RECEIVED PT. LYING IN BED RESTING. PT. IS EASILY AROUSABLE TO NAME. AWAKE, ALERT AND ORIENTED X4. BREATHING EVEN AND UNLABORED ON ROOM AIR. NO SOB, RESPIRATORY DISTRESS OR COMPLAINTS OF PAIN NOTED AT THIS TIME. PT. WITH LEFT WRIST 20 GAUGE PERIPHERAL IV PRESENT, PATENT AND INTACT ADMINISTERING TO PT. D5 1/2 NS @ 75 ML/HR. PER DAYSHIFT NURSE PT. IS PENDING CONSULT WITH DR. ROBERTS LATER TONIGHT. BED LOCKED AND IN LOWEST POSITION, SIDE RAILS UP X2, CALL LIGHT WITHIN REACH, WILL CONTINUE TO MONITOR.
--- NOTE | 2017-10-16 19:15 | NUR ---
RN CLOSING NOTES: PATIENT RESTING IN BED. AOX3. IV SITE ON LEFT WRIST GAUGE 20 WITH CURRENT FLUIDS RUNNING. BED IN LOWEST LOCKED POSITION. CALL LIGHT WITHIN REACH SEIZURE PRECAUTIONS IMPLEMENTED. ENDORSED TO NEXT RN
[2017-10-16 20:00] VITALS: BP 129/69
[2017-10-17] MEDS: PIPERACILLIN /TAZOBACTAM 2.25 G in IV D5W 50 ML IV SCH ×4 (00:25→18:43)
[2017-10-17] MEDS: IV D5/0.45 NACL 1,000 ML IV PRN (05:14)
[2017-10-17] MEDS: MORPHINE SULFATE INJ 4 MG/ML DISP.SYRIN IV PRN (05:15)
--- NOTE | 2017-10-17 07:00 | NUR ---
MS/RN NOTES PT. IS LYING IN BED RESTING. BREATHING EVEN AND UNLABORED ON ROOM AIR. NO SOB, RESPIRATORY DISTRESS OR COMPLAINTS OF PAIN NOTED AT THIS TIME. PT. WITH LEFT WRIST 20 GAUGE PERIPHERAL IV PRESENT, PATENT AND INTACT ADMINISTERING TO PT. D5 1/2 NS @ 75 ML/HR. ALL PT. NEEDS MET. BED LOCKED AND IN LOWEST POSITION, SIDE RAILS UP X2, CALL LIGHT WITHIN REACH, WILL ENDORSE TO DAYSHIFT NURSE FOR CONTINUITY OF CARE.
[2017-10-17 08:00] VITALS: BP 125/62
[2017-10-17] MEDS: PANTOPRAZOLE 40 MG VIAL IV SCH (09:49)
[2017-10-17 10:49] LABS: CALCIUM, SERUM 8.5 mg/dL (8.5-10.1); CARBON DIOXIDE 24 mmol/L (21-32); CHLORIDE 99 mmol/L (98-107); CREATININE 1.4 mg/dL (0.6-1.3); GLUCOSE 148 mg/dL (74-106); MAGNESIUM 2.3 mg/dL (1.8-2.4); PHOSPHORUS 4.1 mg/dL (2.5-4.9); POTASSIUM 4.5 mmol/L (3.5-5.1); SODIUM SERUM 130 mmol/L (136-145); UREA NITROGEN, BLOOD 14 mg/dL (7-18)
[2017-10-17 11:03] LABS: BASOPHILS # (AUTO) 0.1 /CMM (0.0-0.2); BASOPHILS % (AUTO) 0.5 % (0.0-2.0); EOSINOPHILS % (AUTO) 2.3 % (0.0-6.0); HEMATOCRIT 31 % (33-45); HEMOGLOBIN 9.9 g/dL (11.5-14.8); LYMPHOCYTES % (AUTO) 8.5 % (20.0-44.0); MEAN CORPUSCULAR HEMOGLOBIN 30 PG (26.0-33.0); MEAN CORPUSCULAR HGB CONC 32 g/dl (31.0-36.0); MEAN CORPUSCULAR VOLUME 92 fL (82-100); MONOCYTES % (AUTO) 8.5 % (2.0-12.0); NEUTROPHILS # (AUTO) 9.4 /CMM (1.8-8.9); NEUTROPHILS % (AUTO) 80.2 % (43.0-81.0); PLATELET COUNT (AUTO) 327 /CMM (150-450); RDW COEFFICIENT OF VARIATION 13.8 (11.5-15.0); RED BLOOD CELL COUNT(AUTO) 3.34 MIL/uL (4.0-5.2); WHITE BLOOD COUNT (AUTO) 11.8 K/uL (4.3-11.0)
[2017-10-17 12:23] LABS: CHOLESTEROL 152 mg/dL (<200); HDL CHOLESTEROL 67 mg/dL (40-60); LDL 67 mg/dL (0-99); TRIGLYCERIDES 89 mg/dL (30-150)
[2017-10-17] MEDS: IV D5/ 0.9% NACL 1,000 ML IV PRN (12:27)
[2017-10-17 16:00] VITALS: BP 139/70
--- NOTE | 2017-10-17 18:00 | NUR ---
NPO ALL DAY, SOON SHE RETURNED [facility]AN ASKING TO HAVE MEDS RESUMED,TEXTED DR. COLVIN AND RECEIVED ORDERS.ADDITIONALLY DR. ROBERTS IN AND SPOKE WITH PT.SON CALLING ALL DAY AND MDS GIVEN SON'S NUMBER TO CONTACT HIM.
--- NOTE | 2017-10-17 18:09 | NUR ---
Patient resides at the [facility] [phone]. She is ambulatory and requires min assist with adl'S. Has a good family support.Current dc plan is to return to [facility] once discharge. Addendum: 10/17/17 at 1810 by NILES SNYDER RN Amended: Links added.
--- NOTE | 2017-10-17 19:40 | NUR ---
RN NOTE; RECEIVED PT IN BED AWAKE AND ALERT. W/ FAMILY AT THE BED SIDE. BREATHING EVENLY. NO SOB. SKIN WARM AND DRY. NO C/O PAIN OR DISCOMFORT AT THIS TIME/ ASSISTED PT TO THE BATHROOM. NEEDS ATTENDED. BED LOW LOCKED. ARTIE LIGHT WITHIN REACH . WILL CONT TO MONITOR ,
[2017-10-17] MEDS: METOPROLOL TARTRATE 25 MG TABLET PO SCH (20:49)
[2017-10-17 21:21] VITALS: BP 129/64
[2017-10-17] MEDS ORDERED: QUETIAPINE FUMARATE 100 MG TABLET PO SCH (22:00)
[2017-10-17] MEDS ORDERED: risperiDONE 0.25 MG TABLET PO SCH (22:00)
[2017-10-17] MEDS ORDERED: ATORVASTATIN 10 MG TABLET PO SCH (22:00)
[2017-10-17] MEDS ORDERED: LamoTRIgine 100 MG TABLET PO SCH (22:00)
[2017-10-17] MEDS ORDERED: VALSARTAN 80 MG TABLET PO SCH (22:00)
[2017-10-18] MEDS: PIPERACILLIN /TAZOBACTAM 2.25 G in IV D5W 50 ML IV SCH ×3 (00:04→12:16)
[2017-10-18] MEDS: IV D5/ 0.9% NACL 1,000 ML IV PRN (05:36)
--- NOTE | 2017-10-18 06:55 | NUR ---
PT IN BED SLEEPING. BREATHING EVENLY. REMAINED STABLE WITH NO ACUTE EVENT DURING THE NIGHT. NO C/O PAIN OR DISCOMFORT. NO ABD. PAIN. NO N/V. ON ONGOING IVF HYDRATION KIANA WELL. NEEDS ATTENDED. CALL LIGHT WITHIN REACH. WILL CONT TO MONITOR AND WILL ENDORSE TO AM SHIFT FOR OLENA
[2017-10-18 07:40] LABS: ALANINE AMINOTRANSFERASE 15 U/L (12-78); ALBUMIN 2.7 g/dL (3.4-5.0); ALKALINE PHOSPHATASE 78 U/L (46-116); ASPARTATE AMINOTRANSFERASE 12 U/L (15-37); BILIRUBIN,TOTAL 0.2 mg/dL (0.2-1.0); CALCIUM, SERUM 8.7 mg/dL (8.5-10.1); CARBON DIOXIDE 27 mmol/L (21-32); CHLORIDE 103 mmol/L (98-107); CREATININE 1.3 mg/dL (0.6-1.3); GLUCOSE 106 mg/dL (74-106); MAGNESIUM 2.1 mg/dL (1.8-2.4); PHOSPHORUS 3.7 mg/dL (2.5-4.9); POTASSIUM 4.1 mmol/L (3.5-5.1); SODIUM SERUM 137 mmol/L (136-145); TOTAL PROTEIN, SERUM 5.9 g/dL (6.4-8.2); UREA NITROGEN, BLOOD 11 mg/dL (7-18)
[2017-10-18 07:48] LABS: BASOPHILS # (AUTO) 0.1 /CMM (0.0-0.2); BASOPHILS % (AUTO) 1.1 % (0.0-2.0); EOSINOPHILS % (AUTO) 4.9 % (0.0-6.0); HEMATOCRIT 31 % (33-45); HEMOGLOBIN 10.1 g/dL (11.5-14.8); LYMPHOCYTES # (AUTO) 1.4 /CMM (0.8-4.8); LYMPHOCYTES % (AUTO) 15.5 % (20.0-44.0); MEAN CORPUSCULAR HEMOGLOBIN 30 PG (26.0-33.0); MEAN CORPUSCULAR HGB CONC 33 g/dl (31.0-36.0); MEAN CORPUSCULAR VOLUME 92 fL (82-100); MONOCYTES % (AUTO) 10.5 % (2.0-12.0); NEUTROPHILS # (AUTO) 6.4 /CMM (1.8-8.9); PLATELET COUNT (AUTO) 434 /CMM (150-450); RDW COEFFICIENT OF VARIATION 14.1 (11.5-15.0); RED BLOOD CELL COUNT(AUTO) 3.38 MIL/uL (4.0-5.2); WHITE BLOOD COUNT (AUTO) 9.3 K/uL (4.3-11.0)
[2017-10-18 08:00] VITALS: BP 146/75
[2017-10-18] MEDS ORDERED: CHOLECALCIFEROL 1,000 UNIT TABLET (VIT D3) PO SCH (09:00)
[2017-10-18 09:21] VITALS: BP 146/75
[2017-10-18] MEDS: PANTOPRAZOLE 40 MG VIAL IV SCH (09:21)
[2017-10-18] MEDS: METOPROLOL TARTRATE 25 MG TABLET PO SCH (09:21)
--- NOTE | 2017-10-18 14:25 | NUR ---
1420: Patient is discharge, patient's granddaughter at bedside, Aaron will take patient home. CARD DECORATOR to wheelchair patient to call. Patient is staying at [facility]. IV hep lock was removed. No complaints of any pain. No prescription on the chart.
== END 2017-10-18 14:45 | disposition home health service (06) | DRG 445 ==
LOC: ER 10:24 → MED 12:46
PROVIDERS: ADMIT Student in an Organized Health Care Education/Training Program; ATTEND Student in an Organized Health Care Education/Training Program
DX: K81.9 Cholecystitis, unspecified (principal); E87.1 Hypo-osmolality and hyponatremia; E44.1 Mild protein-calorie malnutrition; I25.10 Atherosclerotic heart disease of native coronary artery without angina pectoris; K21.9 Gastro-esophageal reflux disease without esophagitis; Z79.899 Other long term (current) drug therapy; E78.00 Pure hypercholesterolemia, unspecified; D64.9 Anemia, unspecified; E78.5 Hyperlipidemia, unspecified; F31.9 Bipolar disorder, unspecified; I12.9 Hypertensive chronic kidney disease with stage 1 through stage 4 chronic kidney disease, or unspecified chronic kidney disease; N18.9 Chronic kidney disease, unspecified
CPT/HCPCS: 36415; 74018; 76705-TC; 78226; 80048-TC; 80053-TC; 80061-TC; 80076-TC; 83690-TC; 83735-TC; 84100-TC; 85025-TC; 87081-TC; A4606; A9537; C9113; J2270; J2405; J2543; J3490; J7042; J7060; Z7610

== ENCOUNTER 2017-11-02 12:28 | Outpatient (CLI) | payer MEDICARE, BC ==
--- NOTE | 2017-11-01 14:00 | NUR ---
RN NOTES CALL RECEIVED FROM LAB REPORTING POSITIVE C-DIFF RESULTS INFORMED SENIOR MATERIALS PLANNER PATIENT WAS DISCHARGED YESTERDAY STATES PER PROTOCOL THEY HAVE TO REPORT RESULTS TO CHARGE NURSE. SPOKE TO MORENA FAXED OVER RESULTS TO CLINIC WHERE PATIENT HAS AN ANOINTMENT ALSO INFORMED INA SPOKE TO JUVENCIO.
[~2017-11-02 12:28] MED LIST changes: +AMLO5TAB2 PO; +DIPH25CA49 PO; +PANT40TA2 PO; -PIPE3.376 IV
[2017-11-02 12:39] VITALS: BP 163/77
[2017-11-02] MEDS ORDERED: HYDR12.55 PO (16:10)
[2017-11-02] MEDS ORDERED: LOSA50TA21 PO (16:10)
[2017-11-02] MEDS ORDERED: POTA20TA83 PO (16:10)
[2017-11-06] MEDS ORDERED: METR500T PO (10:04)
== END 2017-11-02 23:59 | disposition other institution (70) ==
LOC: MSC 12:28
PROVIDERS: ATTEND Internal Medicine
DX: A04.72 Enterocolitis due to Clostridium difficile, not specified as recurrent (principal); I12.9 Hypertensive chronic kidney disease with stage 1 through stage 4 chronic kidney disease, or unspecified chronic kidney disease; N18.9 Chronic kidney disease, unspecified; K21.9 Gastro-esophageal reflux disease without esophagitis; E78.5 Hyperlipidemia, unspecified; F31.9 Bipolar disorder, unspecified; F29 Unspecified psychosis not due to a substance or known physiological condition; F03.90 Unspecified dementia, unspecified severity, without behavioral disturbance, psychotic disturbance, mood disturbance, and anxiety

== ENCOUNTER 2017-11-02 13:27 | Inpatient (IN) | payer MEDICARE, BC ==
[~2017-11-02] VITALS: Ht 142.2 cm; Wt 47.6 kg
--- NOTE | 2017-11-02 14:19 | NUR ---
SENT FROM DR RUEDA FOR ABDOMINAL PAIN, 11/29, DIAGNOSED W/ COLITIS FROM PREV. ADMISSION. PT NOT IN DISTRESS. PATIENT IS AFEBRILE. VSS
[2017-11-02] MEDS ORDERED: ONDANSETRON HCL/PF 4 MG/2 ML VIAL ONE (14:37)
[2017-11-02] MEDS ORDERED: MORPHINE SULFATE INJ 4 MG/ML DISP.SYRIN ONE (14:37)
[2017-11-02 14:43] LABS: BASOPHILS # (AUTO) 0.2 /CMM (0.0-0.2); BASOPHILS % (AUTO) 1.9 % (0.0-2.0); EOSINOPHILS % (AUTO) 2.9 % (0.0-6.0); HEMATOCRIT 30 % (33-45); HEMOGLOBIN 10.3 g/dL (11.5-14.8); LYMPHOCYTES # (AUTO) 1.2 /CMM (0.8-4.8); LYMPHOCYTES % (AUTO) 11.8 % (20.0-44.0); MEAN CORPUSCULAR HEMOGLOBIN 30 PG (26.0-33.0); MEAN CORPUSCULAR HGB CONC 34 g/dl (31.0-36.0); MEAN CORPUSCULAR VOLUME 88 fL (82-100); MONOCYTES # (AUTO) 0.7 /CMM (0.1-1.30); MONOCYTES % (AUTO) 7.1 % (2.0-12.0); NEUTROPHILS # (AUTO) 8.1 /CMM (1.8-8.9); NEUTROPHILS % (AUTO) 76.3 % (43.0-81.0); PLATELET COUNT (AUTO) 630 /CMM (150-450); RDW COEFFICIENT OF VARIATION 12.7 (11.5-15.0); RED BLOOD CELL COUNT(AUTO) 3.42 MIL/uL (4.0-5.2); WHITE BLOOD COUNT (AUTO) 10.5 K/uL (4.3-11.0)
[2017-11-02 14:57] LABS: CALCIUM, SERUM 9.9 mg/dL (8.5-10.1); CARBON DIOXIDE 28 mmol/L (21-32); CHLORIDE 98 mmol/L (98-107); CREATININE 1.2 mg/dL (0.6-1.3); GLUCOSE 120 mg/dL (74-106); POTASSIUM 4.1 mmol/L (3.5-5.1); SODIUM SERUM 132 mmol/L (136-145); UREA NITROGEN, BLOOD 19 mg/dL (7-18)
[2017-11-02] MEDS ORDERED: IV NS 0.9% 500 ML BAG IV ONE (15:00)
[2017-11-02] MEDS ORDERED: MORPHINE SULFATE INJ 2 MG/ML DISP.SYRIN IV ONE (15:00)
[2017-11-02] MEDS ORDERED: ONDANSETRON HCL/PF 4 MG/2 ML VIAL IVP ONE (15:00)
[2017-11-02 15:12] LABS: ALANINE AMINOTRANSFERASE 18 U/L (12-78); ALBUMIN 3.1 g/dL (3.4-5.0); ALKALINE PHOSPHATASE 89 U/L (46-116); ASPARTATE AMINOTRANSFERASE 16 U/L (15-37); BILIRUBIN,DIRECT 0.1 mg/dL (0.0-0.2); BILIRUBIN,TOTAL 0.3 mg/dL (0.2-1.0); LIPASE 174 U/L (73-393); TOTAL PROTEIN, SERUM 6.7 g/dL (6.4-8.2)
--- NOTE | 2017-11-02 15:58 | NUR ---
CALLED PHARMACY FOR MATTY
[2017-11-02] MEDS ORDERED: VANCOMYCIN 1 GM in IV D5W 250 ML IV ONE (16:00)
--- NOTE | 2017-11-02 16:03 | NUR ---
CALLED [employer] TRANSFER CLERK WAS PAGED
[2017-11-02] MEDS ORDERED: HYDR12.55 PO (16:10)
[2017-11-02] MEDS ORDERED: POTA20TA83 PO (16:10)
[2017-11-02] MEDS ORDERED: LOSA50TA21 PO (16:10)
--- NOTE | 2017-11-02 16:23 | NUR ---
REPORT GIVEN TO SAHARA SRINIVASAN FOR OLENA
[2017-11-02] MEDS ORDERED: MORPHINE SULFATE INJ 2 MG/ML DISP.SYRIN IV PRN (17:00)
[2017-11-02] MEDS ORDERED: Z GUARD REMEDY 2 OZ OINT TP PRN (17:00)
[2017-11-02] MEDS ORDERED: HYDROCODONE/APAP 5/325MG 1 EACH TABLET PO PRN (17:00)
[2017-11-02] MEDS ORDERED: ACETAMINOPHEN 325 MG TABLET PO PRN (17:00)
[2017-11-02] MEDS ORDERED: ZOLPIDEM TARTRATE 5 MG TABLET PO PRN (17:00)
[2017-11-02] MEDS ORDERED: MAGNESIUM HYDROXIDE 30 ML UDC PO PRN (17:00)
[2017-11-02] MEDS ORDERED: ONDANSETRON HCL/PF 4 MG/2 ML VIAL IVP PRN (17:00)
[2017-11-02 17:54] VITALS: BP 169/80
[2017-11-02] MEDS: VANCOMYCIN HCL 125 MG/2.5 ML ORAL.SUSP PO SCH ×2 (18:29→23:13)
[2017-11-02] MEDS ORDERED: diphenhydrAMINE HCL 50 MG/ML VIAL IV PRN (18:30)
[2017-11-02] MEDS: METRONIDAZOLE 500MG/ NS 100ML 500 MG in PREMIX 1 EA IV SCH ×2 (18:37→23:13)
[2017-11-02] MEDS: IV NS 0.9% 1,000 ML IV PRN (18:51)
[2017-11-02] MEDS: hydrALAZINE HCL IV 20 MG VIAL IV PRN (19:06)
--- NOTE | 2017-11-02 19:45 | NUR ---
RN OPENING NOTES RECEIVED REPORT FROM DAYSHIFT RN CRAIG. FOUND Pt AWAKE, RESTING IN BED, WATCHING TV. NO S/S OF ACUTE DISTRESS OR SOB NOTED. Pt A/OX4, VERBAL, ABLE TO MAKE NEEDS KNOWN. IV ACCESS ON RWRIST #20G, NS @100ML/HR. SAFETY MEASURES IN PLACE. BED LOW, LOCKED, HOB ELEVATED, SIDE RAILS UP, CALL LIGHT AND BEDSIDE TABLE WITHIN REACH. WILL CONTINUE TO MONITOR Pt THROUGHOUT THE NIGHT FOR SAFETY.
[2017-11-02 20:00] VITALS: BP 131/60
--- NOTE | 2017-11-02 22:45 | NUR ---
RN NOTES CLARIFIED WITH CELIA LOWRY. Pt IS ALLOWED TO TAKE ONLY VANCO ORAL WHILE ON NPO DIET. NO OTHER PO MEDS ALLOWED UNTIL FURTHER NOTICE.
[2017-11-03] MEDS ORDERED: diphenhydrAMINE HCL 50 MG CAPSULE PO ONE (04:30)
--- NOTE | 2017-11-03 04:30 | NUR ---
RN NOTES Pt C/O ITCHINESS ON BACK, NOTED SOME RED AREAS ON HER BACKSIDE. NOTIFIED ESSENCE YANG, GOT ONE TIME ORDER FOR BENADRYL 50MG PO. WILL ADMINISTER DONTRELL.
[2017-11-03] MEDS: METRONIDAZOLE 500MG/ NS 100ML 500 MG in PREMIX 1 EA IV SCH ×4 (06:37→23:12)
[2017-11-03] MEDS: VANCOMYCIN HCL 125 MG/2.5 ML ORAL.SUSP PO SCH ×4 (06:37→23:12)
--- NOTE | 2017-11-03 06:50 | NUR ---
RN CLOSING NOTES NO SIGNIFICANT CHANGES IN Pt's CONDITION. Pt REMAINS STABLE AT THIS TIME. NO S/S OF ACUTE DISTRESS OR SOB NOTED DURING THE NIGHT. ALL NEEDS MET AND ATTENDED TO. SAFETY MEASURES IN PLACE. WILL ENDORSE TO DAYSHIFT RN FOR Pt's OLENA.
--- NOTE | 2017-11-03 07:35 | NUR ---
MS RN INITIAL NOTES Report received. Patient received in bed, intermittently sleeping, easily aroused and verbally responsive. Denies any pain at the moment. No SOB/labored breathing noted. Not in any type of distress. Safety measures in place. Will continue to monitor and assess patient.
--- NOTE | 2017-11-03 07:35 | NUR ---
MS RN INITIAL NOTES Report received. Patient received in bed, intermittently sleeping, easily aroused and verbally responsive. Denies any pain at the moment. No SOB/labored breathing noted. On contact isolation for CDiff. Still need to collect stool sample. Not in any type of distress. Safety measures in place. Will continue to monitor and assess patient.
[2017-11-03 08:00] VITALS: BP 150/73
[2017-11-03 08:14] LABS: BASOPHILS # (AUTO) 0.1 /CMM (0.0-0.2); BASOPHILS % (AUTO) 0.7 % (0.0-2.0); EOSINOPHILS % (AUTO) 5.1 % (0.0-6.0); HEMATOCRIT 28 % (33-45); HEMOGLOBIN 8.9 g/dL (11.5-14.8); LYMPHOCYTES # (AUTO) 1.5 /CMM (0.8-4.8); LYMPHOCYTES % (AUTO) 16.3 % (20.0-44.0); MEAN CORPUSCULAR HEMOGLOBIN 29 PG (26.0-33.0); MEAN CORPUSCULAR HGB CONC 32 g/dl (31.0-36.0); MEAN CORPUSCULAR VOLUME 91 fL (82-100); MONOCYTES # (AUTO) 0.9 /CMM (0.1-1.30); MONOCYTES % (AUTO) 10.2 % (2.0-12.0); NEUTROPHILS # (AUTO) 6.1 /CMM (1.8-8.9); NEUTROPHILS % (AUTO) 67.7 % (43.0-81.0); PLATELET COUNT (AUTO) 533 /CMM (150-450); RDW COEFFICIENT OF VARIATION 13.6 (11.5-15.0); RED BLOOD CELL COUNT(AUTO) 3.08 MIL/uL (4.0-5.2); WHITE BLOOD COUNT (AUTO) 8.9 K/uL (4.3-11.0)
[2017-11-03 08:25] LABS: CALCIUM, SERUM 8.5 mg/dL (8.5-10.1); CARBON DIOXIDE 24 mmol/L (21-32); CHLORIDE 106 mmol/L (98-107); CREATININE 1.1 mg/dL (0.6-1.3); GLUCOSE 90 mg/dL (74-106); MAGNESIUM 1.6 mg/dL (1.8-2.4); POTASSIUM 4.1 mmol/L (3.5-5.1); SODIUM SERUM 139 mmol/L (136-145); UREA NITROGEN, BLOOD 11 mg/dL (7-18)
[2017-11-03 08:27] LABS: CHOLESTEROL 136 mg/dL (<200); HDL CHOLESTEROL 47 mg/dL (40-60); LDL 74 mg/dL (0-99); TRIGLYCERIDES 75 mg/dL (30-150)
[2017-11-03] MEDS ORDERED: IV NS 0.9% 1,000 ML BAG IV SCH (09:00)
[2017-11-03] MEDS ORDERED: diphenhydrAMINE HCL 50 MG/ML VIAL IV PRN (10:00)
[2017-11-03] MEDS: Magnesium 1GM/D5W 100ML PREMIX 100 ML IV SCH ×2 (10:07→11:28)
[2017-11-03] MEDS: IV NS 0.9% 1,000 ML IV PRN (11:47)
--- NOTE | 2017-11-03 14:39 | NUR ---
MS SAHARA NOTES Made telephonic nurse case manager (Nani) aware that [facility] will not accept the patient back unless c-diff (-) Addendum: 11/03/17 at 1440 by ASPEN PIEDRA RN Spoke with Adelaida from [facility]
[2017-11-03 16:00] VITALS: BP 148/74
--- NOTE | 2017-11-03 19:25 | NUR ---
MS RN OPENING NOTES PT RECEIVED IN BED AT LOWEST AND LOCKED POSITION WITH SIDE RAILS UP X2, A/O X2-3, NO S/S OF PAIN OR DISTRESS NOTED, BREATHING IS EVEN AND UNLABORED ON ROOM AIR, PT HAD 1 BM WITH STOOL COLLECTED, RIGHT AC 22G IS PATENT AND INTACT, SAFETY PRECAUTIONS IN PLACE, WILL CONTINUE TO MONITOR AND ASSESS.
--- NOTE | 2017-11-03 19:25 | NUR ---
LIVESTOCK SALES REPRESENTATIVE CLOSING NOTES Report given. Patient remained in bed, awake, agitated. Patient is confused at this moment. Dr. Starks checked patient post-op at bedside. Lemus cath in place. Irrigation running. Afebrile. IVF running 0.5 NS @125ml/hr, tolerating well. No SOB/labored breathing noted. Bed in locked and lowest position with bed alarm on and call light within reach. Endorsed to oncoming shift nurse Addendum: 11/03/17 at 2008 by ASPEN PIEDRA RN INCORRECT PATIENT DISREGARD NOTES. INCORRECT PATIENT
--- NOTE | 2017-11-03 19:40 | NUR ---
MS RN CLOSING NOTES Report given. Patient remained in bed, awake. Alert and oriented x2 with episode of forgetfulness and confusion. Complained of pain with help of pain mgmt. 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 No active diarrhea//No bowel movement during my shift noted or reported. No SOB/labored breathing noted. Not in any type of distress. IV on right ac #22g: patent and intact with NS @100ml/hr running, tolerating well. Continue on antibiotic per MD. All needs anticipated and met. Bed in locked and lowest position with call light within reach and bed alarm on. Endorsed to oncoming shift nurse.
[2017-11-03 20:00] VITALS: BP 170/100
[2017-11-03] MEDS: hydrALAZINE HCL IV 20 MG VIAL IV PRN (20:46)
--- NOTE | 2017-11-03 20:46 | NUR ---
MS/RN ASSUMED CARE FOR CONTINUITY OF CARE. PATIENT IS AWAKE, ALERT, ORIENTED, COMFORTABLE, NO C/O PAIN, NO DISTRESS NOTED, BP 180/83, HR 86, ASYMPTOMATIC, HYDRALAZINE 10 MG IVP WAS GIVEN ORDERED, TELE BOX WAS PUT IN FOR MONITORING. WILL MONITOR.
--- NOTE | 2017-11-03 21:58 | NUR ---
MS/RN PATIENT CALLED, PER PATIENT SHE DOES NOT FEEL GOOD, SHE FEELS LIKE HER HEART IS BREAKING, AND A LITTLE DIZZY, BP 177/72, HR 116, AND MODERATELY ANXIOUS, NO C/O ANY PAIN, DID A CALL TO [employer], LEFT MESSAGE. WILL MONITOR PATIENT.
--- NOTE | 2017-11-03 22:17 | NUR ---
MS/RN ESSENCE VELAZQUEZ NP, CALLED BACK, INFORMED ABOUT THE PATIENT'S CONDITION, LATEST VITAL SIGNS OF BP 157/75, HR 116, AND PATIENT'S ANXIETY. PER ESSENCE, SHE WILL REVIEW THE PATIENT'S CHART AND MEDS/HOME MEDS. WILL CONTINUE TO MONITOR PATIENT.
--- NOTE | 2017-11-03 22:39 | NUR ---
MS/RN SPECIMEN FOR MRSA OBTAINED.
[2017-11-03] MEDS: QUETIAPINE FUMARATE 100 MG TABLET PO SCH (22:47)
[2017-11-03] MEDS: risperiDONE 1 MG TABLET PO SCH (22:47)
--- NOTE | 2017-11-03 23:00 | NUR ---
MS RN NOTES ASSUMED CARE OF THIS PATIENT FOR CONTINUITY OF CARE. PATIENT ON GROVES'S POSITION WITH O2 INHALATION VIAL NC AT 2LPM, NO RESPIRATORY DISCOMFORT AT THIS TIME. PER REPORT PATIENT HAD HYDRALAZINE, CURRENT BP IS 177/72, NC OF 84. NO COMPLAINT AT THIS TIME. WILL CONTINUE TO MONITOR.
--- NOTE | 2017-11-03 23:06 | NUR ---
MS/RN PATIENT IS AWAKE, ALERT, ORIENTED, STILL SLIGHTLY ANXIOUS, NO DISTRESS NOTED, IVF INFUSING WELL, NEW IV LINE WAS INSERTED AT LEFT HAND G22. ALL NEEDS ATTENDED AT THIS TIME. PATIENT WAS ENDORSED TO SAHARA MIRANDA, FOR CONTINUITY OF CARE.
[2017-11-04] MEDS ORDERED: MORPHINE SULFATE INJ 4 MG/ML DISP.SYRIN IV PRN (04:00)
--- NOTE | 2017-11-04 04:10 | NUR ---
MS RN NOTES Patient complained of abdominal pain. Assessed the patient, administered Morphine as ordered. Patient noted vomited scanty and clear looks like saliva. BP 165/85, FL 135. monitored patient closely. BP monitoring until stable.
[2017-11-04] MEDS: METRONIDAZOLE 500MG/ NS 100ML 500 MG in PREMIX 1 EA IV SCH ×3 (05:00→17:25)
[2017-11-04] MEDS: VANCOMYCIN HCL 125 MG/2.5 ML ORAL.SUSP PO SCH ×3 (05:01→17:25)
--- NOTE | 2017-11-04 06:32 | NUR ---
MS RN CLOSING NOTES Patient asleep on Rodríguez's position on bed, with O2 inhalation tolerated well @ 2LPM via NC as ordered. With patent peripheral IV line L hand G#22 with NS infusing well @ 100 ml/hr as ordered. On IV Flagyl and PO Vanco for c-diff prophylaxis. Unstable BP throughout the shift, closely monitored; noted high when patient is awake, up to 182/81mmHg @ 2300H, highest NM @ 127bpm while awake @0000H, with lowest on asleep, 89/46mmHg @0030H, lowest NM @ 104bpm @0515H while asleep. Medicated for pain and n/v ,noted effective. Patient was able to sleep but noted awaken frequently. Last BP @ 0600AM noted 137/58mmHg, NM 104bpm. No new complaints made. All due meds given, no ASE noted. No diarrhea noted. All needs attended. endorsed to the next shift.
[2017-11-04 07:05] LABS: CALCIUM, SERUM 8.8 mg/dL (8.5-10.1); CARBON DIOXIDE 24 mmol/L (21-32); CHLORIDE 105 mmol/L (98-107); GLUCOSE 106 mg/dL (74-106); POTASSIUM 3.9 mmol/L (3.5-5.1); SODIUM SERUM 138 mmol/L (136-145); UREA NITROGEN, BLOOD 11 mg/dL (7-18)
--- NOTE | 2017-11-04 07:52 | NUR ---
MS RN OPENING NOTES RECEIVED PT FROM NIGHTSHIFT NURSE IN STABLE CONDITION. PT IS A/O X2. NO SOB OR ACUTE SIGNS OF DISTRESS NOTED. BREATHING IS EVEN AND UNLABORED. PT ON 2L VIA NC AND SATING WELL. SHE DENIES ANY PAIN AT THIS TIME. IV TO LEFT HAND NOTED TO BE PATENT AND INTACT. PT TOLERATING NS INFUSION WELL. ONE SOFT BM REPORTED FROM NIGHTSHIFT NURSE. NO DIARRHEA REPORTED. CDIFF ISOLATION PRECAUTIONS MAINTAINED AT THIS TIME. BED IN LOW LOCKED POSITION, SIDE RAILS UP X3, CALL LIGHT WITHIN REACH. WILL CONTINUE TO MONITOR
[2017-11-04 08:00] VITALS: BP 136/77
[2017-11-04 08:02] LABS: BASOPHILS % (AUTO) 0.4 % (0.0-2.0); EOSINOPHILS % (AUTO) 3.2 % (0.0-6.0); HEMATOCRIT 31 % (33-45); HEMOGLOBIN 9.8 g/dL (11.5-14.8); LYMPHOCYTES # (AUTO) 1.5 /CMM (0.8-4.8); MEAN CORPUSCULAR HEMOGLOBIN 29 PG (26.0-33.0); MEAN CORPUSCULAR HGB CONC 32 g/dl (31.0-36.0); MEAN CORPUSCULAR VOLUME 91 fL (82-100); MONOCYTES # (AUTO) 0.9 /CMM (0.1-1.30); MONOCYTES % (AUTO) 8.7 % (2.0-12.0); NEUTROPHILS # (AUTO) 7.7 /CMM (1.8-8.9); NEUTROPHILS % (AUTO) 73.7 % (43.0-81.0); PLATELET COUNT (AUTO) 595 /CMM (150-450); RDW COEFFICIENT OF VARIATION 13.8 (11.5-15.0); WHITE BLOOD COUNT (AUTO) 10.5 K/uL (4.3-11.0)
[2017-11-04] MEDS: IV NS 0.9% 1,000 ML IV PRN ×2 (09:08→22:35)
[2017-11-04] MEDS: METOPROLOL TARTRATE 25 MG TABLET PO SCH ×2 (09:09→21:21)
[2017-11-04] MEDS: CHOLECALCIFEROL 1,000 UNIT TABLET (VIT D3) PO SCH (09:09)
[2017-11-04] MEDS: PANTOPRAZOLE 40 MG TABLET.DR PO SCH ×2 (09:09→17:25)
[2017-11-04] MEDS: AMLODIPINE BESYLATE 5 MG TABLET PO SCH (09:10)
[2017-11-04] MEDS: HYDROCHLOROTHIAZIDE 25 MG TABLET PO SCH (09:10)
--- NOTE | 2017-11-04 09:41 | NUR ---
MS RN NOTES: DIET ORDERS ORDER OBTAINED FROM DR. SANDERS TO ADVANCE PT'S DIET TOLERATED.
[2017-11-04] MEDS ORDERED: LOSARTAN POTASSIUM 50 MG TABLET PO SCH (11:00)
[2017-11-04] MEDS: diphenhydrAMINE HCL 25 MG CAPSULE PO PRN (14:53)
[2017-11-04 16:00] VITALS: BP 118/67
--- NOTE | 2017-11-04 19:33 | NUR ---
MS RN CLOSING NOTES PT REMAINS STABLE. ALL NEEDS MET DURING SHIFT AND ORDERS CARRIED OUT ACCORDINGLY. ALL DUE MEDS GIVEN. NO BM DURING SHIFT. NO COMPLAINTS OF ABDOMINAL PAIN, N/V THROUGHOUT SHIFT. PT TOLERATED SOFT DIET WELL. SAFETY AND ISOLATION PRECAUTIONS REMAIN IN PLACE. WILL ENDORSE TO NIGHTSHIFT NURSE FOR OLENA
[2017-11-04 20:00] VITALS: BP 128/64
--- NOTE | 2017-11-04 20:00 | NUR ---
MS/RN PATIENT AWAKE, ALERT, ORIENTED, COMFORTABLE, NO C/O PAIN, NO DISTRESS NOTED, CALL LIGHT IN REACH. WILL MONITOR.
--- NOTE | 2017-11-04 20:21 | NUR ---
MS/RN PER PATIENT SHE IS ITCHING, BENADRYL DOES NOT HELP MUCH HER ITCHING, REQUESTS FOR A STRONGER MED. SPOKE TO ESSENCE VELAZQUEZ NP, PER CAROLINE SHE WILL PUT IN ORDER.
[2017-11-04] MEDS ORDERED: diphenhydrAMINE HCL/ZINC ACET CREAM 28.3 GM TUBE TP PRN (20:30)
[2017-11-04] MEDS: cetrizine 10 MG TABLET PO SCH (20:35)
[2017-11-04] MEDS: QUETIAPINE FUMARATE 100 MG TABLET PO SCH (21:20)
[2017-11-04] MEDS: risperiDONE 1 MG TABLET PO SCH (21:21)
[2017-11-04] MEDS: ATORVASTATIN 10 MG TABLET PO SCH (21:21)
[2017-11-04] MEDS: VALSARTAN 80 MG TABLET PO SCH (21:22)
[2017-11-04] MEDS: LamoTRIgine 100 MG TABLET PO SCH (21:23)
[2017-11-05] MEDS: METRONIDAZOLE 500MG/ NS 100ML 500 MG in PREMIX 1 EA IV SCH ×5 (00:13→23:30)
[2017-11-05] MEDS: VANCOMYCIN HCL 125 MG/2.5 ML ORAL.SUSP PO SCH ×5 (00:13→23:33)
--- NOTE | 2017-11-05 01:18 | NUR ---
MS/RN PATIENT SLEEPING AT THIS TIME, EASILY AROUSABLE, APPEAR COMFORTABLE, NO DISTRESS NOTED, ALL NEEDS ATTENDED AT THIS TIME, ENDORSED TO NEXT RN FOR CONTINUITY OF CARE.
--- NOTE | 2017-11-05 01:19 | NUR ---
RN MS NOTES RECEIVED PATIENT FOR CONTINUITY OF CARE, PATIENT IN BED SLEEPING BUT EASILY AROUSABLE,RESPIRATIONS EVEN AND UNLABORED WITH EQUAL RISE AND FALL OF CHEST. PATIENT APPEARS COMFORTABLE AT THIS TIME.IV SITE TO LEFT HAND WITH #22G INTACT AND PATENT, NO REDNESS , NO INFILTRATION PRESENT, IVF RUNNING ORDERED, SAFETY PRECAUTIONS IN PLACE, LOW BED AND LOCKED, BED ALARM IN PLACE, CALL LIGHT KEPT WITHIN REACH,WILL CONTINUE TO MONITOR ALL NEEDS ATTENDED AT THIS TIME.
--- NOTE | 2017-11-05 03:35 | NUR ---
RN NOTES Received patient from SAHARA Olmstead for OLENA. Patient is sleeping as of this time. Breathing even and unlabored. Not in any distress. Peripheral IV of NS 1L infusing at 100mL/hr. Safety precautions in place. Call bonilla within reach. Bed in low, locked position. Will continue to monitor
--- NOTE | 2017-11-05 07:16 | NUR ---
RN CLOSING NOTES Patient resting in bed, alert, oriented x 3. Not in any distress. Peripheral IV infusing at 100m/hr. Patient ambulatory with assist. No complaints as of this time. All needs attended to. All medications given as ordered. Endorsed OLENA to AM shift RN.
--- NOTE | 2017-11-05 07:47 | NUR ---
RN OPENING NOTES RECEIVED PATIENT IN BED RESTING. A/OX3, ABLE TO VERBALIZE NEEDS. NO ACUTE DISTRESS, NO SOB. DENIED PAIN OR DISCOMFORT AT THE MOMENT. IV SITE INTACT AND PATENT. PATIENT IS ON ISOLATION PRECAUTION DUE TO HX OF CDIFF. KEPT PATIENT SAFE AND COMFORTABLE. BED IN LOW/LOCKED POSITION, SIDERAILS UPX2, CALL LIGHT IN REACH. WILL CONTINUE TO MONITOR ACCORDINGLY.
[2017-11-05 08:00] VITALS: BP 149/78
[2017-11-05] MEDS: cetrizine 10 MG TABLET PO SCH (09:28)
[2017-11-05] MEDS: METOPROLOL TARTRATE 25 MG TABLET PO SCH ×2 (09:28→21:33)
[2017-11-05] MEDS: AMLODIPINE BESYLATE 5 MG TABLET PO SCH (09:28)
[2017-11-05] MEDS: PANTOPRAZOLE 40 MG TABLET.DR PO SCH ×2 (09:28→17:55)
[2017-11-05] MEDS: CHOLECALCIFEROL 1,000 UNIT TABLET (VIT D3) PO SCH (09:28)
[2017-11-05] MEDS: HYDROCHLOROTHIAZIDE 25 MG TABLET PO SCH (09:30)
[2017-11-05] MEDS: LOSARTAN POTASSIUM 50 MG TABLET PO SCH (09:34)
[2017-11-05 16:00] VITALS: BP 128/70
--- NOTE | 2017-11-05 19:10 | NUR ---
RN INITIAL NOTES Patient received in bed, alert, oriented x 3, family at bedside. Breathing even and unlabored. Not in any distress. Peripheral IV infusing at 100mL/hr, intact and patent. No complaints of discomfort as of this time. Patient stable as per the morning RN. Will continue to monitor accordingly
--- NOTE | 2017-11-05 19:26 | NUR ---
RN CLOSING NOTES PATIENT IN STABLE CONDITION. ALL NEEDS ATTENDED AND PROVIDED. ALL DUE MEDS GIVEN ORDERED. KEPT PATIENT SAFE AND COMFORTABLE. BED IN LOW/LOCKED POSITION, SIDERAILS UPX2, HOB ELEVATED, CALL LIGHT IN REACH. ENDORSED TO NIGHT RN FOR OLENA.
[2017-11-05 20:00] VITALS: BP 145/72
[2017-11-05] MEDS: diphenhydrAMINE HCL 25 MG CAPSULE PO PRN (20:00)
--- NOTE | 2017-11-05 20:04 | NUR ---
RN NOTES Patient is itching, Benadryl 25mg capsule given as ordered. Diphenhydramine cream applied to itchy area.
[2017-11-05] MEDS: IV NS 0.9% 1,000 ML IV PRN (20:47)
[2017-11-05] MEDS: ATORVASTATIN 10 MG TABLET PO SCH (21:33)
[2017-11-05] MEDS: QUETIAPINE FUMARATE 100 MG TABLET PO SCH (21:34)
[2017-11-05] MEDS: risperiDONE 1 MG TABLET PO SCH (21:34)
[2017-11-05] MEDS: LamoTRIgine 100 MG TABLET PO SCH (21:36)
[2017-11-05] MEDS: VALSARTAN 80 MG TABLET PO SCH (21:37)
[2017-11-06] MEDS: METRONIDAZOLE 500MG/ NS 100ML 500 MG in PREMIX 1 EA IV SCH (05:47)
[2017-11-06] MEDS: VANCOMYCIN HCL 125 MG/2.5 ML ORAL.SUSP PO SCH ×2 (05:47→13:06)
[2017-11-06 08:00] VITALS: BP 155/81
[2017-11-06] MEDS: HYDROCHLOROTHIAZIDE 25 MG TABLET PO SCH (08:52)
[2017-11-06] MEDS: CHOLECALCIFEROL 1,000 UNIT TABLET (VIT D3) PO SCH (08:52)
[2017-11-06] MEDS: PANTOPRAZOLE 40 MG TABLET.DR PO SCH (08:53)
[2017-11-06] MEDS: cetrizine 10 MG TABLET PO SCH (08:53)
[2017-11-06 08:55] VITALS: BP 133/80
[2017-11-06] MEDS: METOPROLOL TARTRATE 25 MG TABLET PO SCH (08:55)
[2017-11-06] MEDS: LOSARTAN POTASSIUM 50 MG TABLET PO SCH (08:55)
[2017-11-06] MEDS: AMLODIPINE BESYLATE 5 MG TABLET PO SCH (08:55)
[2017-11-06] MEDS ORDERED: METR500T PO (10:04)
[2017-11-06] MEDS ORDERED: METRONIDAZOLE 250 MG TABLET PO SCH (12:00)
--- NOTE | 2017-11-06 14:15 | NUR ---
discharged patient in stable condition picked up by granddaughter, supposedly to be picked up by ambulance but granddaughter insist that she will take the patient, accompanied by som perez at the lobby. discharge instructions given to patient and granddaughter, verbalized understanding, prescription and paperwork given. all belongings returned, form signed. removed iv, applied pressure, no bleeding, no complication. removed name band. patient will go back to [facility]. skin photos taken.
== END 2017-11-06 14:15 | DRG 371 ==
LOC: ER 13:28 → TELE 16:10 → MED 11-03 07:20
PROVIDERS: ADMIT Family Medicine; ATTEND Family Medicine
DX: A04.72 Enterocolitis due to Clostridium difficile, not specified as recurrent (principal); N17.0 Acute kidney failure with tubular necrosis; E87.1 Hypo-osmolality and hyponatremia; E44.1 Mild protein-calorie malnutrition; K56.7 Ileus, unspecified; K57.30 Diverticulosis of large intestine without perforation or abscess without bleeding; K21.9 Gastro-esophageal reflux disease without esophagitis; I10 Essential (primary) hypertension; F31.9 Bipolar disorder, unspecified; Z79.899 Other long term (current) drug therapy; E78.5 Hyperlipidemia, unspecified; F29 Unspecified psychosis not due to a substance or known physiological condition; Z87.891 Personal history of nicotine dependence; K44.9 Diaphragmatic hernia without obstruction or gangrene; K29.70 Gastritis, unspecified, without bleeding; I70.0 Atherosclerosis of aorta; R73.9 Hyperglycemia, unspecified
CPT/HCPCS: 36415; 71045-TC; 80048-TC; 80061-TC; 80076-TC; 83690-TC; 83735-TC; 84100-TC; 85025-TC; 85730-TC; 87045-TC; 87081-TC; 89055; A4216; A4606; J0360; J1200; J2270; J2405; J3370; J3475; J3490; J7030; J7050; J7060; Q0163; Z7610

== ENCOUNTER 2018-06-07 23:25 | Inpatient (IN) | payer MEDICARE, BC ==
[~2018-06-07] VITALS: Ht 162.6 cm; Wt 57.2 kg
[~2018-06-07 23:25] MED LIST changes: -AMLO5TAB2 PO; +AMLO5TAB9 PO; +HYDR12.55 PO; +LOSA50TA39 PO; +METR500T PO; +POTA20TA83 PO
--- NOTE | 2018-06-07 23:35 | NUR ---
TO BED 4 C/O PT WAS GIVEN TOO MUCH OF HER MUSCLE RELAXANT PER EMS REPORT. PT AAOX3 NO ACUTE DISTRESS NOTED, RESP EVEN AND UNLABORED. PLACE PT ON CARDIAC MONITORING, CONTINUOUS POX, O2@2L/NC. ER MD AT BEDSIDE TO EVAL PT.
[2018-06-07] MEDS ORDERED: ONDANSETRON HCL/PF 4 MG/2 ML VIAL ONE (23:59)
[2018-06-07] MEDS ORDERED: NALOXONE PREFILLED SYRINGE 2 MG/2 ML SYRINGE ONE (23:59)
[2018-06-08] MEDS ORDERED: NALOXONE HCL 0.4 MG/ML AMPUL IV ONE
--- NOTE | 2018-06-08 00:03 | NUR ---
PT MEDICATED BY SAHARA SHANKAR ER ORDER.
[2018-06-08 00:14] LABS: BASOPHILS # (AUTO) 0.1 /CMM (0.0-0.2); BASOPHILS % (AUTO) 0.7 % (0.0-2.0); HEMATOCRIT 29 % (33-45); HEMOGLOBIN 9.8 g/dL (11.5-14.8); LYMPHOCYTES # (AUTO) 2.8 /CMM (0.8-4.8); LYMPHOCYTES % (AUTO) 24.8 % (20.0-44.0); MEAN CORPUSCULAR HGB CONC 34 g/dl (31.0-36.0); MEAN CORPUSCULAR VOLUME 88 fL (82-100); MONOCYTES # (AUTO) 0.9 /CMM (0.1-1.30); MONOCYTES % (AUTO) 7.8 % (2.0-12.0); NEUTROPHILS # (AUTO) 7.2 /CMM (1.8-8.9); NEUTROPHILS % (AUTO) 63.7 % (43.0-81.0); PLATELET COUNT (AUTO) 280 /CMM (150-450); RED BLOOD CELL COUNT(AUTO) 3.31 MIL/uL (4.0-5.2); WHITE BLOOD COUNT (AUTO) 11.3 K/uL (4.3-11.0)
[2018-06-08 00:24] LABS: OCCULT BLOOD STOOL NEGATIVE (NEGATIVE)
[2018-06-08] MEDS ORDERED: ONDANSETRON HCL/PF - ER 4 MG/2 ML VIAL IV ONE (00:30)
[2018-06-08] MEDS ORDERED: IV NS 0.9% 1,000 ML BAG IV ONE ×2 (00:30)
[2018-06-08] MEDS ORDERED: CEFTRIAXONE 1GM BAG (ER ONLY) 1 GM/50 ML PIGGYBACK IV ONE (00:30)
--- NOTE | 2018-06-08 00:30 | NUR ---
PT EASLY AROUSABLE, NO ACUTE DISTRESS NOTED, RESP EVEN AND UNLABORED. CALL LIGHT WITHIN REACH.
[2018-06-08 00:32] LABS: CALCIUM, SERUM 9.2 mg/dL (8.5-10.1); CARBON DIOXIDE 28 mmol/L (21-32); CHLORIDE 96 mmol/L (98-107); GLUCOSE 143 mg/dL (74-106); POTASSIUM 4.6 mmol/L (3.5-5.1); SODIUM SERUM 129 mmol/L (136-145); UREA NITROGEN, BLOOD 40 mg/dL (7-18)
[2018-06-08 00:34] LABS: ALCOHOL, BLOOD < 3 mg/dL (0-0)
[2018-06-08 00:37] LABS: ALANINE AMINOTRANSFERASE 23 U/L (12-78); ALBUMIN 3.4 g/dL (3.4-5.0); ALKALINE PHOSPHATASE 170 U/L (46-116); ASPARTATE AMINOTRANSFERASE 17 U/L (15-37); BILIRUBIN,DIRECT 0.1 mg/dL (0.0-0.2); BILIRUBIN,TOTAL 0.3 mg/dL (0.2-1.0); LIPASE 208 U/L (73-393); TOTAL PROTEIN, SERUM 6.5 g/dL (6.4-8.2)
[2018-06-08] MEDS ORDERED: ONDANSETRON HCL/PF 4 MG/2 ML VIAL IVP PRN (01:00)
[2018-06-08] MEDS ORDERED: MAG HYDROX/AL HYDROX/SIMETH 30 ML UDC PO PRN (01:00)
[2018-06-08] MEDS ORDERED: Z GUARD REMEDY 2 OZ OINT TP PRN (01:00)
[2018-06-08] MEDS ORDERED: ACETAMINOPHEN 325 MG TABLET PO PRN (01:00)
[2018-06-08] MEDS ORDERED: MAGNESIUM HYDROXIDE 30 ML UDC PO PRN (01:00)
--- NOTE | 2018-06-08 01:30 | NUR ---
ER SPOKE TO GARLAND RENO REGARDING PT ADMISSION.
[2018-06-08] MEDS ORDERED: CEFTRIAXONE 1GM BAG (ER ONLY) 50 ML IV ONE (01:34)
--- NOTE | 2018-06-08 04:37 | NUR ---
REPORT CALLED TELE 1 SAHARA MARRUFO. WILL TRANSPORT PT VIA ACLS PROTOCOL.
--- NOTE | 2018-06-08 05:05 | NUR ---
VIANNEY RN NOTES PTS IS 88 Y/O FEMALE , ADMITTED FOR AMS PTS CAME FROM [facility] [place] , PTS IS A/OXI , ON NC AT 2LITERS SATING 100 % NO SOB NO DISTRESS NOTED , V/S STABLE AFEBRILE ,ADMISSION ROUTINE CARE RENDERED ,ALL NEEDS ATTENDED TOO CALL LIGHT WITHIN REACH , KEPT PTS CLEAN DRY AND COMFORTABLE . PTS ON HL AT R HAND G #18
[2018-06-08 05:17] VITALS: BP 150/44
[2018-06-08] MEDS: IV NS 0.9% 1,000 ML IV PRN ×2 (06:33→19:48)
--- NOTE | 2018-06-08 07:25 | NUR ---
josh rn notes pts remains in bed sleeping but easily to arouse , on tele sr on the monitor , no sob no distress noted , v/s stable afebrile .on ivf of ns at 75cc/hr infusing well. will endorse to rn day shift for continuity of care.
--- NOTE | 2018-06-08 07:30 | NUR ---
RN NOTES RECEIVED PATIENT IN BED, ASLEEP BUT EASILY AROUSES TO VERBAL STIMULI, A/0 2-3 , ABLE TO RESPOND APPROPRIATELY, NOT ON ANY FORM OF DISTRESS, WITH NASAL CANNULA WITH O2 AT 2 LPM, SATING FINE. NO SOB NOTED, SR ON THE MONITOR HR AT 80S. IV ACCESS ON THE R HAND G 18 , IN PLACE AND PATENT, DRESSING CDI, NS RUNNING AT 75CC/HR, SAFETY MEASURES OBSERVED AND MAINTAINED, SRX2, BED LOW AND LOCKED, CALL LIGHT PLACED WITHIN REACH, WILL CONTINUE TO MONITOR CLOSELY
[2018-06-08 07:51] LABS: APPEARANCE,URINE CLEAR (CLEAR); BILIRUBIN,URINE NEGATIVE (NEGATIVE); BLOOD, URINE NEGATIVE Ery/uL (NEGATIVE); COLOR,URINE YELLOW (YELLOW); KETONES,URINE NEGATIVE (NEGATIVE); LEUKOCYTE ESTERASE ,URINE 1+ (NEGATIVE); NITRITE, URINE NEGATIVE (NEGATIVE); PROTEIN,URINE NEGATIVE (NEGATIVE); UGLUCOSE NEGATIVE (NEGATIVE); UROBILINOGEN,URINE 0.2 EU/dL (0.2)
[2018-06-08 08:00] VITALS: BP 136/69
[2018-06-08 09:10] LABS: BACTERIA,URINE Rare /HPF (None Seen); RBC,URINE NONE SEEN /HPF (0-2); SQUAMOUS EPITHELIAL CELL,UR Few /HPF (None Seen)
[2018-06-08] MEDS ORDERED: SENN-168 PO (09:27)
[2018-06-08] MEDS ORDERED: PANT40TA2 PO (09:27)
[2018-06-08] MEDS ORDERED: ONDA4TAB5 PO (09:27)
[2018-06-08] MEDS ORDERED: POLY17PO4 PO (09:27)
[2018-06-08] MEDS ORDERED: ACET325T80 PO (09:27)
[2018-06-08] MEDS ORDERED: IBUP-1953 PO (09:27)
[2018-06-08] MEDS ORDERED: DOCU-141 PO (09:27)
[2018-06-08] MEDS ORDERED: MULT-447 PO (09:27)
[2018-06-08] MEDS ORDERED: AMLO5TAB9 PO (09:27)
[2018-06-08] MEDS ORDERED: [UNRECOGNIZED DRUG - CODE] PO (09:27)
[2018-06-08] MEDS ORDERED: DEXTROSE 50%-WATER 50 ML DISP.SYRIN IV PRN (11:00)
[2018-06-08] MEDS ORDERED: POLYETHYLENE GLYCOL 3350 17 GM POWD.PACK PO PRN (11:30)
[2018-06-08] MEDS ORDERED: SENNOSIDES 8.6 MG TABLET PO PRN (11:30)
[2018-06-08 12:00] VITALS: BP 132/70
[2018-06-08] MEDS: BLOOD SUGAR DIAGNOSTIC 1 EACH STRIP IN SCH ×3 (12:20→21:37)
--- NOTE | 2018-06-08 12:21 | NUR ---
RN NOTES REULARR INSULIN PER SLIDING SCALE NOT GIVEN DUE TO PATIENT NPO STATUS
[2018-06-08 16:00] VITALS: BP 147/53
[2018-06-08] MEDS: DOCUSATE SODIUM 100 MG CAPSULE PO SCH (17:02)
--- NOTE | 2018-06-08 17:15 | NUR ---
Met with patient, drowsy and has limited response to interaction. [facility] [phone]. States she can ambulate with a cane or walker, requires assistance with adl's. Family is involved and supportive with plan of care. She plan to go back to the [facility] once discharge. Addendum: 06/08/18 at 2320 by NILES SNYDER RN Amended: Links added.
[2018-06-08] MEDS: INSULIN REGULAR, HUMAN 100 UNIT/ML 3 ML VIAL SQ PRN ×2 (17:27→22:04)
--- NOTE | 2018-06-08 19:36 | NUR ---
RN NOTES ENDORSED PATIENT FOR CONTINUITY OF CARE. NOT ON ANY FORM OF DISTRESS. NO ACUTE CHANGE WITHIN THE SHIFT. ALL NURSING NEEDS ATTENDED AND MET. SAFETY MEASURES KEPT IN PLACE AT ALL TIMES. CALL LIGHT WITHIN REACH
[2018-06-08] MEDS ORDERED: CEFTRIAXONE 1 G in IV D5W 50 ML IV SCH (21:00)
[2018-06-08] MEDS: ATORVASTATIN 10 MG TABLET PO SCH (21:35)
[2018-06-08] MEDS: VALSARTAN 80 MG TABLET PO SCH (21:35)
[2018-06-08] MEDS: PANTOPRAZOLE 40 MG TABLET.DR PO SCH (21:36)
[2018-06-08] MEDS: QUETIAPINE FUMARATE 100 MG TABLET PO SCH (21:36)
[2018-06-08] MEDS: LamoTRIgine 100 MG TABLET PO SCH (21:36)
[2018-06-08] MEDS: METOPROLOL TARTRATE 25 MG TABLET PO SCH (21:36)
[2018-06-08] MEDS: risperiDONE 0.25 MG TABLET PO SCH (21:40)
[2018-06-08 22:43] VITALS: BP 156/81
[2018-06-09] VITALS: BP 144/60
[2018-06-09 04:00] VITALS: BP 137/52
--- NOTE | 2018-06-09 07:05 | NUR ---
RN NOTES RECEIVED PATIENT ON BED ,A/Ox3, ON 2L O2 N/C , RESPIRATION EVEN AND UNLABORED , NO SOB NOTED, ON TELE SR HR IN 90'S ,NS AT 75CC/HR RUNNING VIA R HAND IV SITE G 18 , SITE CLEAN ,DRY AND INTACT, SR UP x3, CALL LIGHT WITHIN EASY REACH, BED LOCKED AND IN LOWEST, CONTINUE TO MONITOR .
[2018-06-09 08:00] VITALS: BP 136/74
[2018-06-09 08:15] LABS: BASOPHILS % (AUTO) 0.1 % (0.0-2.0); EOSINOPHILS % (AUTO) 0.4 % (0.0-6.0); HEMATOCRIT 27 % (33-45); HEMOGLOBIN 8.9 g/dL (11.5-14.8); LYMPHOCYTES # (AUTO) 1.4 /CMM (0.8-4.8); LYMPHOCYTES % (AUTO) 6.7 % (20.0-44.0); MEAN CORPUSCULAR HGB CONC 33 g/dl (31.0-36.0); MEAN CORPUSCULAR VOLUME 88 fL (82-100); MONOCYTES # (AUTO) 1.7 /CMM (0.1-1.30); MONOCYTES % (AUTO) 8.3 % (2.0-12.0); NEUTROPHILS % (AUTO) 84.5 % (43.0-81.0); PLATELET COUNT (AUTO) 290 /CMM (150-450); RED BLOOD CELL COUNT(AUTO) 3.03 MIL/uL (4.0-5.2); WHITE BLOOD COUNT (AUTO) 20.1 K/uL (4.3-11.0)
[2018-06-09 08:20] LABS: CALCIUM, SERUM 8.7 mg/dL (8.5-10.1); CARBON DIOXIDE 22 mmol/L (21-32); CHLORIDE 104 mmol/L (98-107); CREATININE 1.2 mg/dL (0.6-1.3); GLUCOSE 114 mg/dL (74-106); MAGNESIUM 1.8 mg/dL (1.8-2.4); PHOSPHORUS 2.9 mg/dL (2.5-4.9); POTASSIUM 3.8 mmol/L (3.5-5.1); SODIUM SERUM 138 mmol/L (136-145); UREA NITROGEN, BLOOD 22 mg/dL (7-18)
[2018-06-09] MEDS: MULTIVITAMINS,THERAGRAN 1 UDTAB TABLET PO SCH (08:26)
[2018-06-09] MEDS: PANTOPRAZOLE 40 MG TABLET.DR PO SCH ×2 (08:26→21:21)
[2018-06-09] MEDS: DOCUSATE SODIUM 100 MG CAPSULE PO SCH ×2 (08:26→17:08)
[2018-06-09] MEDS: LamoTRIgine 100 MG TABLET PO SCH ×2 (08:27→21:22)
[2018-06-09] MEDS: BLOOD SUGAR DIAGNOSTIC 1 EACH STRIP IN SCH ×4 (08:27→21:33)
[2018-06-09] MEDS: METOPROLOL TARTRATE 25 MG TABLET PO SCH ×2 (08:30→21:22)
[2018-06-09 09:24] LABS: CHOLESTEROL 126 mg/dL (<200); HDL CHOLESTEROL 74 mg/dL (40-60); LDL 42 mg/dL (0-99); THYROID STIMULATING HORMONE 2.955 uIU/mL (0.358-3.74); TRIGLYCERIDES 48 mg/dL (30-150)
[2018-06-09] MEDS: IV NS 0.9% 1,000 ML IV PRN (09:56)
--- NOTE | 2018-06-09 12:00 | NUR ---
RN NOTES SUPPORTIVE SON AT THE BEDSIDE, VSS STABLE , CONTINUE TO MONITOR .
--- NOTE | 2018-06-09 13:00 | NUR ---
RN NOTES SLIGHT REDNESS NOTED AT THE L AC AND R HAND IV SITE , IVS D/HARSHAD, NEW IV SITE STARTED ON R UPPER ARM.
[2018-06-09] MEDS ORDERED: LEVOFLOXACIN 500 MG /D5W 100ML 500 MG in PREMIX 1 EA IV ONE (14:00)
[2018-06-09 16:00] VITALS: BP 140/78
[2018-06-09] MEDS: INSULIN REGULAR, HUMAN 100 UNIT/ML 3 ML VIAL SQ PRN (17:08)
--- NOTE | 2018-06-09 18:00 | NUR ---
RN NOTES PT STABLE, NO SIGNIFICANT CHANGES NOTED ON THIS SHIFT, WILL ENDORSE TO HARVEST FIELD TICKETER NURSE FOR CONTINUITY OF CARE .
--- NOTE | 2018-06-09 19:30 | NUR ---
MS RN NOTE: RECEIVED PT ON BED ALERT AND ORIENTED X2. ABLE TO MAKE NEEDS KNOWN. NO APPARENT DISTRESS NOTED. DENIES PAIN AND DISCOMFORT AT THIS TIME. ON 2LPM NASAL CANNULA, NO SOB NOTED. IV ON RIGHT FOREARM #22 INTACT AND PATENT, IVF INFUSING WELL. KEPT CLEAN, DRY AND COMFORTABLE. CALL LIGHT PLACED WITHIN REACH. SIDE RAILS UP X2. BED ALARM ON. BED LOCKED AND IN LOWEST POSITION. WILL CONTINUE TO MONITOR PT.
[2018-06-09 20:00] VITALS: BP 136/66
[2018-06-09] MEDS: QUETIAPINE FUMARATE 100 MG TABLET PO SCH (21:21)
[2018-06-09] MEDS: ATORVASTATIN 10 MG TABLET PO SCH (21:21)
[2018-06-09] MEDS: VALSARTAN 80 MG TABLET PO SCH (21:23)
[2018-06-09] MEDS: risperiDONE 0.25 MG TABLET PO SCH (21:26)
[2018-06-10 04:00] VITALS: BP 136/69
[2018-06-10] MEDS: IV NS 0.9% 1,000 ML IV PRN (04:15)
[2018-06-10 06:21] LABS: BASOPHILS % (AUTO) 0.2 % (0.0-2.0); EOSINOPHILS % (AUTO) 0.5 % (0.0-6.0); HEMATOCRIT 27 % (33-45); LYMPHOCYTES # (AUTO) 1.2 /CMM (0.8-4.8); LYMPHOCYTES % (AUTO) 6.5 % (20.0-44.0); MEAN CORPUSCULAR HGB CONC 34 g/dl (31.0-36.0); MEAN CORPUSCULAR VOLUME 87 fL (82-100); MONOCYTES # (AUTO) 1.6 /CMM (0.1-1.30); MONOCYTES % (AUTO) 8.5 % (2.0-12.0); NEUTROPHILS % (AUTO) 84.3 % (43.0-81.0); PLATELET COUNT (AUTO) 294 /CMM (150-450); RED BLOOD CELL COUNT(AUTO) 3.06 MIL/uL (4.0-5.2)
[2018-06-10 06:25] LABS: CALCIUM, SERUM 8.3 mg/dL (8.5-10.1); CARBON DIOXIDE 22 mmol/L (21-32); CHLORIDE 104 mmol/L (98-107); GLUCOSE 106 mg/dL (74-106); MAGNESIUM 1.6 mg/dL (1.8-2.4); PHOSPHORUS 2.2 mg/dL (2.5-4.9); POTASSIUM 3.5 mmol/L (3.5-5.1); SODIUM SERUM 138 mmol/L (136-145); UREA NITROGEN, BLOOD 15 mg/dL (7-18)
--- NOTE | 2018-06-10 06:49 | NUR ---
MS RN NOTE: NO CHANGES NOTED THROUGHOUT THE SHIFT. NO APPARENT DISTRESS NOTED. DENIES PAIN AND DISCOMFORT AT THIS TIME. NO SOB NOTED. IV ON RIGHT FOREARM #22 INTACT AND PATENT, IVF INFUSING WELL. KEPT CLEAN, DRY AND COMFORTABLE. SAFETY AND FALL PRECAUTIONS OBSERVED AND MAINTAINED. WILL ENDORSE TO DAY SHIFT RN FOR CONTINUITY OF CARE.
--- NOTE | 2018-06-10 07:12 | NUR ---
RN INITIAL NOTES: Rec'd pt on bed, not in any distress, A/O x 2-3 w/ periods of forgetfulness. On NC at 2 lpm, no SOB. Has LFA G22 w/ NS x 75 cc/hr infusing well, no s/sx of infection/infiltration noted. Safety precaution in place w/ bed in lowest & locked pos. Call light placed w/in reach. Will cont to monitor & attend pt needs.
[2018-06-10] MEDS: INSULIN REGULAR, HUMAN 100 UNIT/ML 3 ML VIAL SQ PRN ×2 (07:57→12:30)
[2018-06-10] MEDS: BLOOD SUGAR DIAGNOSTIC 1 EACH STRIP IN SCH ×2 (07:57→12:29)
[2018-06-10 08:00] VITALS: BP 143/62
[2018-06-10] MEDS: MULTIVITAMINS,THERAGRAN 1 UDTAB TABLET PO SCH (09:09)
[2018-06-10] MEDS: DOCUSATE SODIUM 100 MG CAPSULE PO SCH (09:09)
[2018-06-10] MEDS: LamoTRIgine 100 MG TABLET PO SCH (09:09)
[2018-06-10] MEDS: PANTOPRAZOLE 40 MG TABLET.DR PO SCH (09:09)
[2018-06-10 09:28] VITALS: BP 143/62
[2018-06-10] MEDS: METOPROLOL TARTRATE 25 MG TABLET PO SCH (09:28)
[2018-06-10] MEDS: Magnesium 1GM/D5W 100ML PREMIX 100 ML IV SCH ×2 (10:55→12:10)
[2018-06-10] MEDS ORDERED: K PHOS NEUTRAL 250 MG TABLET PO ONE (11:00)
[2018-06-10] MEDS ORDERED: LEVO750T21 PO (13:15)
--- NOTE | 2018-06-10 13:30 | NUR ---
Pt see & examined by CELIA Guzmán w/ orders made & carried out.
--- NOTE | 2018-06-10 15:10 | NUR ---
EXHIBITION DESIGNER NOTES: Pt DC'd to [facility] as ordered. DC documents explained & provided to the pt's son Granville w/ verbalization of understanding. IV line access removed, pressure dressing applied. All belongings sent w/ the pt, nothing is missing. No concern/issues identified during transfer. Pt left the unit in stable condition accompanied by pt's son & CREATIVE ENGAGEMENT DIRECTOR via WC.
--- NOTE | 2018-06-10 15:14 | NUR ---
RN INITIAL NOTES: Rec'd pt on bed, not in any distress, A/O x 2-3 w/ periods of forgetfulness. On NC at 2 lpm, no SOB. Has LFA G22 w/ NS x 75 cc/hr infusing well, no s/sx of infection/infiltration noted. Safety precaution in place w/ bed in lowest & locked pos. Call light placed w/in reach. Will cont to monitor & attend pt needs. Addendum: 06/10/18 at 1517 by MELLISA RENE RN wrong time documented. pls disregard
[2018-06-11] MEDS ORDERED: LEVOFLOXACIN 250 MG /D5W 50 ML 250 MG in PREMIX 1 EA IV SCH (14:00)
== END 2018-06-10 15:10 | disposition home or self-care (01) | DRG 682 ==
LOC: ER 23:30 → TELE 06-08 02:03 → TELE-TD 06-08 04:29 → MEDSG1 06-09 09:58
PROVIDERS: ADMIT Nurse Practitioner Acute Care; ATTEND Nurse Practitioner Acute Care
DX: N17.0 Acute kidney failure with tubular necrosis (principal); G92 Toxic encephalopathy; N39.0 Urinary tract infection, site not specified; E87.1 Hypo-osmolality and hyponatremia; E03.9 Hypothyroidism, unspecified; E78.5 Hyperlipidemia, unspecified; F31.9 Bipolar disorder, unspecified; F29 Unspecified psychosis not due to a substance or known physiological condition; Z79.899 Other long term (current) drug therapy; D63.8 Anemia in other chronic diseases classified elsewhere; I12.9 Hypertensive chronic kidney disease with stage 1 through stage 4 chronic kidney disease, or unspecified chronic kidney disease; N18.9 Chronic kidney disease, unspecified; K21.9 Gastro-esophageal reflux disease without esophagitis; Z87.891 Personal history of nicotine dependence; F12.90 Cannabis use, unspecified, uncomplicated; E86.1 Hypovolemia; Z98.51 Tubal ligation status; E11.22 Type 2 diabetes mellitus with diabetic chronic kidney disease; B96.5 Pseudomonas (aeruginosa) (mallei) (pseudomallei) as the cause of diseases classified elsewhere
CPT/HCPCS: 36415; 71045-TC; 80048-TC; 80061-TC; 80076-TC; 81000-TC; 82272-TC; 82962-TC; 83605-TC; 83690-TC; 83735-TC; 84100-TC; 84439-TC; 84443-TC; 84484-TC; 85025-TC; 85730-TC; 86850-TC; 87040-TC; 87081-TC; 87086-TC; 87186-TC; A4216; G0378; G0480; J0696; J1815; J1956; J2310; J2405; J3475; J7030; J7060

== ENCOUNTER 2018-06-24 09:52 | Emergency (ER) | payer MEDICARE, BC ==
[~2018-06-24] VITALS: Ht 142.2 cm; Wt 51.7 kg
[~2018-06-24 09:52] MED LIST changes: +ACET325T80 PO; -CHOL100044 PO; -DIPH25CA49 PO; +DOCU-141 PO; +IBUP-1953 PO; +LEVO750T21 PO; -LOSA50TA39 PO; -METR500T PO; +MULT-447 PO; +ONDA4TAB5 PO; +POLY17PO4 PO; +SENN-168 PO; +[UNRECOGNIZED DRUG - CODE] PO
--- NOTE | 2018-06-24 09:52 | NUR ---
LORENZO Casey FROM [facility] FOR COUGH WITH CONGESTION S/P MARIJUANA INGESTION LAST NIGHT. TO ER BED5 , HOOKED TO MONITOR, CHANGED TO GOWN, PROVIDED W WARM BLANKET, AWAITING MD PEÑA.
--- NOTE | 2018-06-24 10:35 | NUR ---
DR MARCUS AT BEDSIDE
[2018-06-24] MEDS ORDERED: ALBUTEROL FS 2.5 MG/3 ML VIAL.NEB ONE (10:56)
[2018-06-24] MEDS ORDERED: IPRATROPIUM NEB FS 0.5 MG/2.5 ML AMPUL.NEB ONE (10:56)
[2018-06-24] MEDS ORDERED: IPRATROPIUM NEB FS 0.5 MG/2.5 ML AMPUL.NEB NEB ONE (11:00)
[2018-06-24] MEDS ORDERED: ALBUTEROL FS 2.5 MG/3 ML VIAL.NEB CONTNEB ONE (11:00)
[2018-06-24 11:02] LABS: BASOPHILS # (AUTO) 0.1 /CMM (0.0-0.2); BASOPHILS % (AUTO) 1.3 % (0.0-2.0); EOSINOPHILS % (AUTO) 0.6 % (0.0-6.0); HEMATOCRIT 29 % (33-45); HEMOGLOBIN 9.7 g/dL (11.5-14.8); LYMPHOCYTES # (AUTO) 0.7 /CMM (0.8-4.8); LYMPHOCYTES % (AUTO) 7.2 % (20.0-44.0); MEAN CORPUSCULAR HGB CONC 34 g/dl (31.0-36.0); MEAN CORPUSCULAR VOLUME 87 fL (82-100); MONOCYTES # (AUTO) 1.3 /CMM (0.1-1.30); MONOCYTES % (AUTO) 13.8 % (2.0-12.0); NEUTROPHILS # (AUTO) 7.3 /CMM (1.8-8.9); NEUTROPHILS % (AUTO) 77.1 % (43.0-81.0); PLATELET COUNT (AUTO) 530 /CMM (150-450); RED BLOOD CELL COUNT(AUTO) 3.27 MIL/uL (4.0-5.2); WHITE BLOOD COUNT (AUTO) 9.5 K/uL (4.3-11.0)
[2018-06-24 11:09] LABS: CALCIUM, SERUM 9.2 mg/dL (8.5-10.1); CARBON DIOXIDE 27 mmol/L (21-32); CHLORIDE 101 mmol/L (98-107); CREATININE 1.7 mg/dL (0.6-1.3); GLUCOSE 113 mg/dL (74-106); SODIUM SERUM 135 mmol/L (136-145); UREA NITROGEN, BLOOD 35 mg/dL (7-18)
--- NOTE | 2018-06-24 11:17 | NUR ---
REC'D REPORT FROM SAHARA MONTESINOS FOR OLENA
[2018-06-24 11:19] LABS: ABG BASE EXCESS -1.9 mmol/L; ABG OXYGEN SATURATION 92.8 % (92.0-98.5); ABG PCO2 31.9 mmHg (35.0-45.0); ABG PH 7.448 (7.350-7.450); ABG PO2 70.1 mmHg (75.0-100.0); AaDO2 41.4 mmHg; COHb 0.5 % (0.5-1.5); MetHb 0.1 % (0.0-1.5); O2Hb 92.2 % (94.0-97.0); SITE, ABG Right Radial; VENT MODE, BG ROOM AIR
[2018-06-24 11:21] LABS: ALANINE AMINOTRANSFERASE 21 U/L (12-78); ALBUMIN 3.3 g/dL (3.4-5.0); ALKALINE PHOSPHATASE 88 U/L (46-116); ASPARTATE AMINOTRANSFERASE 24 U/L (15-37); B-TYPE NATRIURETIC PEPTIDE 390 PG/ML (0-125); BILIRUBIN,DIRECT 0.1 mg/dL (0.0-0.2); BILIRUBIN,TOTAL 0.2 mg/dL (0.2-1.0); TOTAL PROTEIN, SERUM 6.8 g/dL (6.4-8.2)
[2018-06-24] MEDS ORDERED: IV NS 0.9% 1,000 ML BAG IV ONE (11:30)
--- NOTE | 2018-06-24 11:54 | NUR ---
BREATHING TX COMPLETED. PT RESTING COMFORTABLY IN BED. PROVIDED EXTRA BLANKET FOR COMFORT. IVF INFUSING. WILL CONT TO MONITOR.
[2018-06-24] MEDS ORDERED: IV NS 0.9% 250 ML IV ONE (12:07)
[2018-06-24] MEDS ORDERED: IOHEXOL-350 100 ML VIAL IV ONE (12:07)
[2018-06-24] MEDS ORDERED: CT SWABBABLE VALVE TRANS SET 1 EA INFUS.SET MC ONE (12:07)
--- NOTE | 2018-06-24 12:25 | NUR ---
SECOND IV INSERTED FOR PULMO ANGIO
--- NOTE | 2018-06-24 12:32 | NUR ---
PT TAKEN TO CT VIA ANNA MARIE
--- NOTE | 2018-06-24 12:54 | NUR ---
PT BACK FROM CT. KIANA WELL. HOOKED BACK TO MONITOR AND IV
--- NOTE | 2018-06-24 13:10 | NUR ---
SPOKE WITH SON, GAVE UPDATE. OK PER PT
[2018-06-24] MEDS ORDERED: IV NS 0.9% 500 ML BAG IV ONE (13:30)
--- NOTE | 2018-06-24 14:37 | NUR ---
SON AT BEDSIDE
--- NOTE | 2018-06-24 14:38 | NUR ---
CALLED RO FOR DISCHARGE BACK TO THE [facility] ETA 45-60 MINS (APPROX 1525 PER CLINICAL TRIAL ASSOCIATE) AUTH #[id number]
--- NOTE | 2018-06-24 15:45 | NUR ---
REPORT GIVEN TO RO EMT AND SANDER AT THE [facility]. IV removed. Catheter intact and site benign. Pressure and 4x4 applied to site. No bleeding noted.Patient discharged in stable condition. Written and verbal after care instructions given. Patient verbalizes understanding of instruction.
[2018-06-24 16:00] VITALS: BP 117/62
== END 2018-06-24 15:37 ==
LOC: ER 09:52
DX: J98.01 Acute bronchospasm (principal); F12.90 Cannabis use, unspecified, uncomplicated; E86.0 Dehydration; F31.9 Bipolar disorder, unspecified; E78.00 Pure hypercholesterolemia, unspecified; E03.9 Hypothyroidism, unspecified; I12.9 Hypertensive chronic kidney disease with stage 1 through stage 4 chronic kidney disease, or unspecified chronic kidney disease; N18.9 Chronic kidney disease, unspecified; F10.10 Alcohol abuse, uncomplicated; R00.0 Tachycardia, unspecified; Y90.9 Presence of alcohol in blood, level not specified
CPT/HCPCS: 36415; 36600; 71045; 71275; 80048; 80076; 82803; 83880; 84484; 85025; 85378; 87804 ×2; 93005; 94640; 96360; 99284; J7030; J7040; J7050; Q9967; 87400

== ENCOUNTER 2018-08-29 11:37 | Emergency (ER) | payer MEDICARE, BC ==
[~2018-08-29] VITALS: Ht 142.2 cm; Wt 52.6 kg
[~2018-08-29 11:37] MED LIST changes: -LEVO750T21 PO
--- NOTE | 2018-08-29 11:50 | NUR ---
PT [id number] FOR WEAKNESS/LETHARGIC SINCE LAST NIGHT PER REPORTER ANCHOR. BG 130, -NEURO DEFICIT, PT IS AAOX3, NOT IN RESPIRATORY DISTRESS ,VS STABLE, KEPT RESTEDAND COMFORTABLE, WILL CONTINUE TO MONITOR.
--- NOTE | 2018-08-29 12:30 | NUR ---
IV LINE ESTABLISHED, BLOOD DRAWNED AND SENT TO LAB.
--- NOTE | 2018-08-29 12:40 | NUR ---
SEEN AND EXAMINED BY .
[2018-08-29 12:47] LABS: BASOPHILS # (AUTO) 0.1 /CMM (0.0-0.2); BASOPHILS % (AUTO) 1.2 % (0.0-2.0); EOSINOPHILS % (AUTO) 3.1 % (0.0-6.0); HEMATOCRIT 30 % (33-45); LYMPHOCYTES # (AUTO) 0.9 /CMM (0.8-4.8); LYMPHOCYTES % (AUTO) 9.5 % (20.0-44.0); MEAN CORPUSCULAR HGB CONC 33 g/dl (31.0-36.0); MEAN CORPUSCULAR VOLUME 87 fL (82-100); MONOCYTES % (AUTO) 10.2 % (2.0-12.0); NEUTROPHILS # (AUTO) 7.2 /CMM (1.8-8.9); PLATELET COUNT (AUTO) 426 /CMM (150-450); RED BLOOD CELL COUNT(AUTO) 3.46 MIL/uL (4.0-5.2); WHITE BLOOD COUNT (AUTO) 9.5 K/uL (4.3-11.0)
--- NOTE | 2018-08-29 12:50 | NUR ---
URINE SPECIMEN COLLECTED AND SENT TO LAB.
[2018-08-29 12:58] LABS: CALCIUM, SERUM 9.6 mg/dL (8.5-10.1); CARBON DIOXIDE 29 mmol/L (21-32); CHLORIDE 99 mmol/L (98-107); CREATININE 1.3 mg/dL (0.6-1.3); GLUCOSE 102 mg/dL (74-106); POTASSIUM 5.3 mmol/L (3.5-5.1); SODIUM SERUM 134 mmol/L (136-145); UREA NITROGEN, BLOOD 32 mg/dL (7-18)
[2018-08-29 13:04] LABS: ALANINE AMINOTRANSFERASE 22 U/L (12-78); ALBUMIN 3.2 g/dL (3.4-5.0); ALCOHOL, BLOOD < 3 mg/dL (0-0); ALKALINE PHOSPHATASE 86 U/L (46-116); ASPARTATE AMINOTRANSFERASE 19 U/L (15-37); BILIRUBIN,DIRECT 0.1 mg/dL (0.0-0.2); BILIRUBIN,TOTAL 0.3 mg/dL (0.2-1.0); TOTAL PROTEIN, SERUM 7.1 g/dL (6.4-8.2)
[2018-08-29 13:11] LABS: BILIRUBIN,URINE Negative (NEGATIVE); BLOOD, URINE Trace-intact Ery/uL (NEGATIVE); COLOR,URINE Yellow (YELLOW); KETONES,URINE Negative (NEGATIVE); LEUKOCYTE ESTERASE ,URINE Small (NEGATIVE); NITRITE, URINE Negative (NEGATIVE); PROTEIN,URINE Negative (NEGATIVE); UGLUCOSE Negative (NEGATIVE); UROBILINOGEN,URINE 0.2 EU/dL (0.2)
[2018-08-29 13:12] LABS: APPEARANCE,URINE SLIGHTLY HAZY (CLEAR)
[2018-08-29 13:13] LABS: BACTERIA,URINE Few /HPF (None Seen); SQUAMOUS EPITHELIAL CELL,UR Few /HPF (None Seen)
[2018-08-29 14:08] LABS: THYROID STIMULATING HORMONE 3.024 uIU/mL (0.358-3.74)
[2018-08-29] MEDS ORDERED: FUROSEMIDE 20 MG/2 ML VIAL ONE (14:59)
[2018-08-29] MEDS ORDERED: CEFTRIAXONE 1GM BAG (ER ONLY) 50 ML IV ONE (14:59)
[2018-08-29] MEDS ORDERED: FUROSEMIDE 20 MG/2 ML VIAL IV ONE (15:00)
[2018-08-29] MEDS ORDERED: CEFTRIAXONE 1GM BAG (ER ONLY) 1 GM/50 ML PIGGYBACK IV ONE (15:00)
[2018-08-29 15:06] VITALS: BP 125/64
--- NOTE | 2018-08-29 15:27 | NUR ---
IV removed. Catheter intact and site benign. Pressure and 4x4 applied to site. No bleeding noted. Patient discharged to home in stable condition. Written and verbal after care instructions given. Patient verbalizes understanding of instruction.
== END 2018-08-29 15:54 | disposition home or self-care (01) ==
LOC: ER 11:40
DX: N39.0 Urinary tract infection, site not specified (principal); R53.1 Weakness; R22.43 Localized swelling, mass and lump, lower limb, bilateral; E03.9 Hypothyroidism, unspecified; F31.9 Bipolar disorder, unspecified; E78.00 Pure hypercholesterolemia, unspecified; I12.9 Hypertensive chronic kidney disease with stage 1 through stage 4 chronic kidney disease, or unspecified chronic kidney disease; N18.9 Chronic kidney disease, unspecified; Z79.899 Other long term (current) drug therapy
CPT/HCPCS: 36415; 71045; 80048; 80076; 80307; 81001; 83605; 83880; 84443; 84484; 85025; 87086; 96365; 96375; 99284; J0696; J1940; 81000-TC; G0480